=== PATIENT | male | born 1950 | race Caucasian/White ===

== ENCOUNTER 2016-11-24 15:56 | Emergency (ER) | payer MEDICARE, MEDICAID ==
[~2016-11-24] VITALS: Ht 175.3 cm; Wt 92.2 kg
[~2016-11-24 15:56] MED LIST: AMLO10TA2 PO; AMOX1TAB64 PO; ASPI-496 PO; ASPI-650 PO; ATOR20TA9 PO; CARV3.122 PO; CARV6.252 PO; CIPR500T87 PO; CYCL-259 PO; DOCU-30 PO; DOXY100T PO; FURO-93 PO; GABA300C10 PO; GABA600T2 PO; HYDR-3138 PO; IPRA4AER INH; ISOS30TA8 PO; LISI5TAB7 PO; MORP100C15; NICO1PAT4 TD; NITR0.4T SL; OSEL75CA PO; OXYC-229; POTA20TA14 PO; PRED10TA PO; SIMV20TA PO; TAMS-11 PO; TRAM100C2 PO
[2016-11-24] MEDS ORDERED: ASPIRIN 81 MG TABLET CHEW PO ONE (16:30)
[2016-11-24] MEDS ORDERED: SODIUM CHLORIDE FLUSH 10ML SYR IVF ONE (16:30)
[2016-11-24] MEDS ORDERED: ASPIRIN 81 MG TABLET CHEW ONE (17:07)
[2016-11-24 17:17] LABS: BLOOD UREA NITROGEN 10 mg/dL (7-18)
[2016-11-24 17:25] LABS: ASPARTATE AMINO TRANSFERASE 43 U/L (15-37)
[2016-11-24 17:29] LABS: IS PT STATUS REG ER OR PRE ER? YES
[2016-11-24 19:34] LABS: IS PT STATUS REG ER OR PRE ER? YES
[2016-11-24 19:45] VITALS: BP 164/82
== END 2016-11-24 20:21 | disposition home or self-care (01) ==
LOC: ED 18:41
DX: R07.89 Other chest pain (principal); R79.89 Other specified abnormal findings of blood chemistry; I11.0 Hypertensive heart disease with heart failure; I50.9 Heart failure, unspecified; E78.5 Hyperlipidemia, unspecified; J44.9 Chronic obstructive pulmonary disease, unspecified; M19.90 Unspecified osteoarthritis, unspecified site; I25.10 Atherosclerotic heart disease of native coronary artery without angina pectoris
CPT/HCPCS: 36415; 71010; 80053; 83690; 83880; 84484; 85025; 93005; 99285

== ENCOUNTER 2016-12-30 15:56 | Emergency (ER) | payer MEDICARE, MEDICAID ==
[~2016-12-30] VITALS: Ht 172.7 cm; Wt 89.0 kg
[~2016-12-30 15:56] MED LIST changes: +DOCU-131 PO; -DOCU-30 PO; -HYDR-3138 PO; +HYDR-3237 PO; +NICO1PAT13 TD; -NICO1PAT4 TD; -OXYC-229; +OXYC-307
[2016-12-30] MEDS ORDERED: KETOROLAC 30 MG/1 ML ONE (17:26)
[2016-12-30] MEDS ORDERED: KETOROLAC 30 MG/1 ML IM ONE (17:30)
[2016-12-30 17:32] LABS: HEMATOCRIT 46.1 % (39.2-51.8); WHITE BLOOD COUNT 8.6 x10^3/uL (3.4-10)
[2016-12-30 17:45] LABS: ASPARTATE AMINO TRANSFERASE 54 U/L (15-37); BLOOD UREA NITROGEN 11 mg/dL (7-18)
[2016-12-30 19:30] VITALS: BP 155/74
== END 2016-12-30 19:32 | disposition home or self-care (01) ==
LOC: ED 18:12
DX: L73.9 Follicular disorder, unspecified (principal); G89.29 Other chronic pain; M54.9 Dorsalgia, unspecified; F17.200 Nicotine dependence, unspecified, uncomplicated; N40.0 Benign prostatic hyperplasia without lower urinary tract symptoms; I11.0 Hypertensive heart disease with heart failure; I50.9 Heart failure, unspecified; M19.90 Unspecified osteoarthritis, unspecified site; J44.9 Chronic obstructive pulmonary disease, unspecified
CPT/HCPCS: 36415; 74020; 80053; 81001; 83690; 85025; 96372; 99285; J1885

== ENCOUNTER 2017-02-02 10:16 | Emergency (ER) | payer MEDICARE, MEDICAID ==
[~2017-02-02] VITALS: Ht 175.3 cm; Wt 89.0 kg
[~2017-02-02 10:16] MED LIST changes: +NICO-486 TD; -NICO1PAT13 TD
[2017-02-02 10:29] VITALS: BP 163/82
[2017-02-02] MEDS ORDERED: KETOROLAC 60 MG/2 ML IM ONE (12:00)
[2017-02-02] MEDS ORDERED: KETOROLAC 30 MG/1 ML ONE (12:36)
== END 2017-02-02 12:43 | disposition home or self-care (01) ==
LOC: ED 12:01
DX: S00.93XA Contusion of unspecified part of head, initial encounter (principal); S20.211A Contusion of right front wall of thorax, initial encounter; J44.9 Chronic obstructive pulmonary disease, unspecified; M19.90 Unspecified osteoarthritis, unspecified site; E78.5 Hyperlipidemia, unspecified; I11.0 Hypertensive heart disease with heart failure; I50.9 Heart failure, unspecified; F17.200 Nicotine dependence, unspecified, uncomplicated; W19.XXXA Unspecified fall, initial encounter; Y93.89 Activity, other specified; Y92.009 Unspecified place in unspecified non-institutional (private) residence as the place of occurrence of the external cause; Y99.9 Unspecified external cause status
CPT/HCPCS: 70450; 71010; 96372; 99284; J1885

== ENCOUNTER 2017-02-10 08:03 | Emergency (ER) | payer MEDICARE, MEDICAID ==
[~2017-02-10] VITALS: Ht 175.3 cm; Wt 81.0 kg
[2017-02-10] MEDS ORDERED: IBUPROFEN 200 MG TABLET ONE (08:57)
[2017-02-10] MEDS ORDERED: IBUPROFEN 200 MG TABLET PO ONE (09:00)
[2017-02-10 10:08] VITALS: BP 149/83
== END 2017-02-10 10:35 | disposition home or self-care (01) ==
LOC: ED 08:48
DX: S20.211A Contusion of right front wall of thorax, initial encounter (principal); N30.00 Acute cystitis without hematuria; E11.9 Type 2 diabetes mellitus without complications; I11.0 Hypertensive heart disease with heart failure; I50.9 Heart failure, unspecified; E78.5 Hyperlipidemia, unspecified; J44.9 Chronic obstructive pulmonary disease, unspecified; I25.10 Atherosclerotic heart disease of native coronary artery without angina pectoris; F17.200 Nicotine dependence, unspecified, uncomplicated; W19.XXXA Unspecified fall, initial encounter; Y93.89 Activity, other specified; Y92.410 Unspecified street and highway as the place of occurrence of the external cause; Y99.9 Unspecified external cause status
CPT/HCPCS: 71020; 81001; 87086; 93005; 99285

== ENCOUNTER 2017-02-16 16:56 | Inpatient (IN) | payer MEDICARE, MEDICAID ==
[~2017-02-16] VITALS: Ht 172.7 cm; Wt 87.5 kg
[2017-02-16 17:30] LABS: HEMATOCRIT 44.8 % (39.2-51.8); HEMOGLOBIN 15.1 g/dL (13.7-18.0); WHITE BLOOD COUNT 9.5 x10^3/uL (3.4-10)
[2017-02-16 17:36] LABS: ASPARTATE AMINO TRANSFERASE 48 U/L (15-37); BLOOD UREA NITROGEN 7 mg/dL (7-18)
[2017-02-16 17:42] LABS: IS PT STATUS REG ER OR PRE ER? YES
[2017-02-16] MEDS ORDERED: KETOROLAC 30 MG/1 ML IVPush ONE (18:00)
[2017-02-16] MEDS: MORPHINE SULFATE 4 MG/ML, 1ML IVPush PRN ×2 (18:00→20:08)
[2017-02-16] MEDS ORDERED: MORPHINE SULFATE 4 MG/ML, 1ML ONE ×2 (18:02→20:07)
[2017-02-16] MEDS ORDERED: KETOROLAC 30 MG/1 ML ONE (18:02)
[2017-02-16] MEDS ORDERED: SODIUM CHLORIDE FLUSH 10ML SYR IVF ONE (18:30)
[2017-02-16 19:29] LABS: IS PT STATUS REG ER OR PRE ER? YES
[2017-02-16] MEDS ORDERED: ASPIRIN 81 MG TABLET CHEW ONE (20:13)
[2017-02-16] MEDS ORDERED: hydrALAzine 20 MG/ML, 1ML IVPush PRN (20:30)
[2017-02-16] MEDS ORDERED: morphine SULFATE 10 MG/ML, 1ML IVPush PRN (20:30)
[2017-02-16] MEDS ORDERED: NITROGLYCERIN 0.4 MG BOTTLE (25 TABS) SL PRN (20:30)
[2017-02-16] MEDS ORDERED: ASPIRIN 81 MG TABLET CHEW PO ONE (20:30)
[2017-02-16] MEDS ORDERED: ONDANSETRON 2MG/ML, 2ML IVPush PRN (20:30)
[2017-02-16] MEDS ORDERED: ACETAMINOPHEN 325 MG TABLET PO PRN (20:30)
[2017-02-16] MEDS: SODIUM CHLORIDE FLUSH 10ML SYR IVF SCH (20:34)
[2017-02-16 21:49] VITALS: BP 143/89
[2017-02-16] MEDS ORDERED: OXYC-509 PO (22:02)
[2017-02-16] MEDS: GABAPENTIN 300 MG CAPSULE PO SCH (22:30)
[2017-02-16 23:26] LABS: IS PT STATUS REG ER OR PRE ER? NO
[2017-02-17 01:43] VITALS: BP 125/67
[2017-02-17] MEDS ORDERED: ENOXAPARIN 40 MG/0.4 ML SQ SCH (04:30)
[2017-02-17] MEDS ORDERED: TAMSULOSIN 0.4 MG CAP.ER.24H PO SCH (05:30)
[2017-02-17 05:37] LABS: IS PT STATUS REG ER OR PRE ER? NO
[2017-02-17] MEDS: GABAPENTIN 300 MG CAPSULE PO SCH (07:53)
[2017-02-17] MEDS: SODIUM CHLORIDE FLUSH 10ML SYR IVF SCH (07:53)
[2017-02-17 07:55] VITALS: BP 161/84
[2017-02-17] MEDS ORDERED: ASPIRIN 81 MG TABLET EC PO SCH (09:00)
[2017-02-17] MEDS ORDERED: LISINOPRIL 5 MG TABLET PO SCH (09:00)
[2017-02-17] MEDS ORDERED: REGADENOSON 0.4 MG/5 ML SYRINGE ONE (11:48)
[2017-02-17 14:34] VITALS: BP 168/74
[2017-02-17] MEDS ORDERED: NITR0.4T SL (16:50)
[2017-02-17] MEDS ORDERED: IBUP-1221 PO (16:50)
[2017-02-17] MEDS ORDERED: ACET500T71 PO (16:51)
[2017-02-17] MEDS ORDERED: KETOROLAC 30 MG/1 ML IVPush ONE (17:00)
== END 2017-02-17 18:47 | disposition home or self-care (01) | DRG 556 ==
LOC: ED 19:13 → SUATTDRO 20:27 → EDIP 20:43 → 5SO 21:05
PROVIDERS: ADMIT Hospitalist; ATTEND Hospitalist
DX: M79.1 Myalgia (principal); E11.42 Type 2 diabetes mellitus with diabetic polyneuropathy; I25.10 Atherosclerotic heart disease of native coronary artery without angina pectoris; E78.5 Hyperlipidemia, unspecified; F17.210 Nicotine dependence, cigarettes, uncomplicated; F32.9 Major depressive disorder, single episode, unspecified; G89.29 Other chronic pain; I10 Essential (primary) hypertension; I25.2 Old myocardial infarction; I34.0 Nonrheumatic mitral (valve) insufficiency; I44.7 Left bundle-branch block, unspecified; M19.90 Unspecified osteoarthritis, unspecified site; Z82.49 Family history of ischemic heart disease and other diseases of the circulatory system; Z83.3 Family history of diabetes mellitus; Z91.81 History of falling; W19.XXXA Unspecified fall, initial encounter
CPT/HCPCS: 36415; 71010; 78452; 80053; 81003; 84484; 85025; 93005; 93017; 96374; 96375; 96376; J1650; J1885; J2785; A9502; C9898; J2270

== ENCOUNTER 2017-03-27 16:24 | Inpatient (IN) | payer MEDICARE, MEDICAID ==
[~2017-03-27] VITALS: Ht 175.3 cm; Wt 85.9 kg
[~2017-03-27 16:24] MED LIST changes: +ACET500T71 PO; +IBUP-1221 PO; +OXYC-509 PO
[2017-03-27] MEDS ORDERED: SODIUM CHLORIDE FLUSH 10ML SYR IVF ONE (17:00)
[2017-03-27] MEDS ORDERED: KETOROLAC 30 MG/1 ML IVPush ONE (17:00)
[2017-03-27] MEDS ORDERED: ASPIRIN 81 MG TABLET CHEW PO ONE (17:00)
[2017-03-27] MEDS ORDERED: KETOROLAC 30 MG/1 ML ONE (17:09)
[2017-03-27] MEDS ORDERED: ASPIRIN 81 MG TABLET CHEW ONE (17:09)
[2017-03-27 17:23] LABS: HEMATOCRIT 44.3 % (39.2-51.8); HEMOGLOBIN 14.8 g/dL (13.7-18.0); WHITE BLOOD COUNT 8.9 x10^3/uL (3.4-10)
[2017-03-27 17:36] LABS: ASPARTATE AMINO TRANSFERASE 35 U/L (15-37); BLOOD UREA NITROGEN 12 mg/dL (7-18)
[2017-03-27 17:42] LABS: IS PT STATUS REG ER OR PRE ER? YES
[2017-03-27] MEDS ORDERED: ACETAMINOPHEN 325 MG TABLET PO ONE (19:00)
[2017-03-27] MEDS ORDERED: NITROGLYCERIN 0.4 MG BOTTLE (25 TABS) SL PRN ×2 (19:00→19:30)
[2017-03-27] MEDS ORDERED: ACETAMINOPHEN 325 MG TABLET PO PRN (19:30)
[2017-03-27] MEDS ORDERED: NITROGLYCERIN 0.4 MG/SPRAY SL PRN (19:30)
[2017-03-27 20:39] VITALS: BP 180/103
[2017-03-27] MEDS: morphine SULFATE 10 MG/ML, 1ML IV PRN (21:15)
[2017-03-27] MEDS ORDERED: ENALAPRILAT 1.25 MG/ML, 2ML IV PRN (22:00)
[2017-03-27] MEDS: GABAPENTIN 300 MG CAPSULE PO SCH (22:11)
[2017-03-27] MEDS: SODIUM CHLORIDE FLUSH 10ML SYR IVF SCH (22:12)
[2017-03-27 22:56] LABS: RAPID INFLUENZA A Negative (Negative); RAPID INFLUENZA B Negative (Negative)
[2017-03-27 22:57] VITALS: BP 170/75
[2017-03-27] MEDS ORDERED: PNEUMOCOCCAL 23 VACCINE IM-VACC ONE (23:00)
[2017-03-27] MEDS ORDERED: FLU VACC QS2017-18 (36MOS+) UP/PF 0.5 ML IM-VACC ONE (23:00)
[2017-03-27 23:44] LABS: IS PT STATUS REG ER OR PRE ER? NO
[2017-03-28] MEDS ORDERED: hydrALAzine 20 MG/ML, 1ML IV ONE
[2017-03-28] MEDS: OXYcodone IR 5MG TABLET PO PRN ×4 (00:05→18:35)
[2017-03-28 01:17] VITALS: BP 134/74
[2017-03-28 02:44] LABS: IS PT STATUS REG ER OR PRE ER? NO
[2017-03-28] MEDS: morphine SULFATE 10 MG/ML, 1ML IV PRN ×3 (03:18→16:31)
[2017-03-28] MEDS: CARVEDILOL 6.25 MG TABLET PO SCH ×2 (06:26→17:56)
[2017-03-28 07:14] VITALS: BP 156/87
[2017-03-28] MEDS ORDERED: LISINOPRIL 5 MG TABLET PO SCH (09:00)
[2017-03-28] MEDS ORDERED: ASPIRIN 81 MG TABLET EC PO SCH (09:00)
[2017-03-28] MEDS: SODIUM CHLORIDE FLUSH 10ML SYR IVF SCH (09:04)
[2017-03-28] MEDS: GABAPENTIN 300 MG CAPSULE PO SCH (09:05)
[2017-03-28] MEDS ORDERED: NICOTINE 7 MG/24 HR PATCH.TD24 TD SCH (12:00)
[2017-03-28 13:05] VITALS: BP 151/83
[2017-03-28 17:56] VITALS: BP 161/93
[2017-03-28 18:34] VITALS: BP 155/86
== END 2017-03-28 18:53 | disposition home or self-care (01) | DRG 292 ==
LOC: ED 17:19 → EDIP 19:01 → 5SO 20:24
PROVIDERS: ADMIT Family Medicine; ATTEND Family Medicine
DX: I11.0 Hypertensive heart disease with heart failure (principal); F11.20 Opioid dependence, uncomplicated; R07.89 Other chest pain; I25.10 Atherosclerotic heart disease of native coronary artery without angina pectoris; I50.9 Heart failure, unspecified; E78.5 Hyperlipidemia, unspecified; F17.200 Nicotine dependence, unspecified, uncomplicated; N40.0 Benign prostatic hyperplasia without lower urinary tract symptoms; M19.90 Unspecified osteoarthritis, unspecified site; M79.1 Myalgia; R74.8 Abnormal levels of other serum enzymes; Z23 Encounter for immunization; I25.2 Old myocardial infarction; Z82.49 Family history of ischemic heart disease and other diseases of the circulatory system; Z83.3 Family history of diabetes mellitus; Z98.1 Arthrodesis status
CPT/HCPCS: 36415; 71010; 80053; 80061; 81003; 82550; 83735; 84484; 85025; 85610; 85730; 87400; 90686; 90732; 93005; 93306; 96374; J1885; J0360; J2270

== ENCOUNTER 2017-06-06 15:29 | Inpatient (IN) | payer MEDICARE, MEDICAID ==
[~2017-06-06] VITALS: Ht 175.3 cm; Wt 86.5 kg
[2017-06-06] MEDS ORDERED: ASPIRIN 81 MG TABLET CHEW PO ONE (16:00)
[2017-06-06 16:02] LABS: BASOPHILS # (AUTO) 0.06 x10^3/uL (0-0.1); BASOPHILS % (AUTO) 1 % (0-1); EOSINOPHILS # (AUTO) 0.24 x10^3/uL (0-0.4); EOSINOPHILS % (AUTO) 3 % (1-7); LYMPHOCYTES # (AUTO) 3.22 x10^3/uL (1-3.4); LYMPHOCYTES % (AUTO) 40 % (22-44); MD NO; MEAN CORPUSCULAR HEMOGLOBIN 29.8 pg (27.5-34.5); MEAN CORPUSCULAR HGB CONC 32.9 g/dL (33.2-36.2); MEAN CORPUSCULAR VOLUME 90.5 fL (81-97); MEAN PLATELET VOLUME 7.4 fL (7.4-10.4); MONOCYTES # (AUTO) 0.71 x10^3/uL (0.2-0.8); MONOCYTES % (AUTO) 9 % (2-9); NEUTROPHILS # (AUTO) 3.84 x10^3/uL (1.8-6.8); NEUTROPHILS % (AUTO) 48 % (42-75); PLATELET COUNT 288 x10^3/uL (130-400); RED CELL DISTRIBUTION WIDTH 14.7 % (9.4-14.8)
[2017-06-06] MEDS ORDERED: ASPIRIN 81 MG TABLET CHEW ONE (16:02)
[2017-06-06 16:10] LABS: ALANINE AMINOTRANSFERASE 48 U/L (12-78); ALBUMIN 3.4 g/dL (3.4-5.0); ANION GAP 6 mmol/L (5-15); CHLORIDE 109 mmol/L (98-107); CREATININE 0.85 mg/dL (0.7-1.3)
[2017-06-06 16:15] LABS: ALKALINE PHOSPHATASE 144 U/L (45-117); BILIRUBIN,TOTAL 0.3 mg/dL (0.2-1.0); TOTAL PROTEIN 7.6 g/dL (6.4-8.2)
[2017-06-06] MEDS ORDERED: CARV12.543 PO (16:16)
[2017-06-06 16:20] LABS: TROPONIN I 0.141 ng/mL (0.000-0.045)
[2017-06-06] MEDS ORDERED: LISI-167 PO (16:20)
[2017-06-06] MEDS ORDERED: SODIUM CHLORIDE 0.9% 1,000 ML IV ONE (16:49)
[2017-06-06] MEDS ORDERED: NITROGLYCERIN SINGLE TAB 0.4 MG SL ONE (16:55)
[2017-06-06] MEDS ORDERED: HEPARIN 5,000 UNITS/ML, 1ML IVPush ONE (17:00)
[2017-06-06] MEDS: NITROGLYCERIN SINGLE TAB 0.4 MG SL PRN ×4 (17:00→17:15)
[2017-06-06] MEDS ORDERED: SODIUM CHLORIDE FLUSH 10ML SYR IVF ONE (17:00)
[2017-06-06 17:08] LABS: INTERNATIONAL NORMALIZED RATIO 0.96 (0.93-1.1)
[2017-06-06] MEDS ORDERED: NITROGLYCERIN OINT 2%, 1GM TP ONE ×2 (17:22→17:30)
[2017-06-06] MEDS ORDERED: HEPARIN 5,000 UNITS/ML, 1ML IV ONE (17:30)
[2017-06-06] MEDS ORDERED: HEPARIN 25,000 UNITS/500ML PMX 500 ML IV PRN (17:30)
[2017-06-06] MEDS ORDERED: HEPARIN 5,000 UNITS/ML, 1ML IV PRN (17:30)
[2017-06-06] MEDS ORDERED: HEPARIN 25,000 UNITS/500ML PMX 500 ML ONE (17:32)
[2017-06-06] MEDS ORDERED: HEPARIN 5,000 UNITS/ML, 1ML ONE (17:32)
[2017-06-06 18:25] VITALS: BP 174/93
[2017-06-06] MEDS: CARVEDILOL 12.5 MG TABLET PO SCH (20:06)
[2017-06-06] MEDS: LIDODERM 5% PATCH TD SCH (20:06)
[2017-06-06] MEDS: GABAPENTIN 300 MG CAPSULE PO SCH (20:07)
[2017-06-06] MEDS: OXYcodone/APAP 10/325MG TABLET PO PRN (20:34)
[2017-06-06 22:11] LABS: TROPONIN I 0.139 ng/mL (0.000-0.045)
[2017-06-06] MEDS ORDERED: OMNIPAQUE 350 MG/ML, 100ML BOTTLE ONE (23:20)
[2017-06-07 02:56] VITALS: BP 134/68
[2017-06-07 05:06] LABS: TROPONIN I 0.133 ng/mL (0.000-0.045)
[2017-06-07] MEDS: OXYcodone/APAP 10/325MG TABLET PO PRN ×3 (06:44→22:08)
[2017-06-07 08:07] VITALS: BP 156/87
[2017-06-07 08:08] VITALS: BP_SYST 159; BP_SYST 165; BP_DIAS 90; BP_DIAS 94
[2017-06-07] MEDS: GABAPENTIN 300 MG CAPSULE PO SCH ×2 (08:49→20:46)
[2017-06-07] MEDS: CARVEDILOL 12.5 MG TABLET PO SCH ×2 (08:49→20:46)
[2017-06-07] MEDS: ASPIRIN 81 MG TABLET EC PO SCH (08:49)
[2017-06-07] MEDS: ISOSORBIDE MONONITRATE ER 30 MG TABLET PO SCH (08:49)
[2017-06-07] MEDS: LISINOPRIL 20 MG TABLET PO SCH (08:49)
[2017-06-07 12:55] VITALS: BP 123/71
[2017-06-07] MEDS: ACETAMINOPHEN 325 MG TABLET PO PRN (19:45)
[2017-06-07 20:29] VITALS: BP 141/71
[2017-06-07 20:30] VITALS: BP_SYST 151; BP_SYST 156; BP_DIAS 75
[2017-06-07] MEDS: LIDODERM 5% PATCH TD SCH (20:45)
[2017-06-08 02:00] VITALS: BP_SYST 135; BP_SYST 153; BP_SYST 158; BP_DIAS 68; BP_DIAS 83
[2017-06-08 08:03] VITALS: BP_SYST 164; BP_SYST 168; BP_SYST 174; BP_DIAS 85; BP_DIAS 87; BP_DIAS 88
[2017-06-08] MEDS: ASPIRIN 81 MG TABLET EC PO SCH (08:33)
[2017-06-08] MEDS: CARVEDILOL 12.5 MG TABLET PO SCH (08:33)
[2017-06-08] MEDS: GABAPENTIN 300 MG CAPSULE PO SCH (08:34)
[2017-06-08] MEDS: ISOSORBIDE MONONITRATE ER 30 MG TABLET PO SCH (08:34)
[2017-06-08] MEDS: LISINOPRIL 20 MG TABLET PO SCH (08:34)
[2017-06-08] MEDS: OXYcodone/APAP 10/325MG TABLET PO PRN (08:39)
[2017-06-08] MEDS ORDERED: LORazepam 0.5MG TABLET PO ONE (09:30)
[2017-06-08 13:48] VITALS: BP_SYST 138; BP_SYST 146; BP_SYST 155; BP_DIAS 71; BP_DIAS 77; BP_DIAS 80
[2017-06-08] MEDS: ACETAMINOPHEN 325 MG TABLET PO PRN (13:58)
[2017-06-08] MEDS ORDERED: ISOS30TA8 PO (14:53)
[2017-06-08] MEDS ORDERED: MECL12.52 PO (14:54)
== END 2017-06-08 16:58 | disposition home or self-care (01) | DRG 292 ==
LOC: ED 17:14 → EDIP 17:33 → 5SO 18:19 → 3NE 06-07 22:20 → DCLOUNGE 06-08 16:13
PROVIDERS: ADMIT Internal Medicine; ATTEND Internal Medicine
DX: I11.0 Hypertensive heart disease with heart failure (principal); F11.20 Opioid dependence, uncomplicated; I42.9 Cardiomyopathy, unspecified; J44.9 Chronic obstructive pulmonary disease, unspecified; I50.9 Heart failure, unspecified; G62.9 Polyneuropathy, unspecified; I25.10 Atherosclerotic heart disease of native coronary artery without angina pectoris; E11.9 Type 2 diabetes mellitus without complications; E78.5 Hyperlipidemia, unspecified; I44.7 Left bundle-branch block, unspecified; M19.90 Unspecified osteoarthritis, unspecified site; G89.29 Other chronic pain; I34.0 Nonrheumatic mitral (valve) insufficiency; M54.9 Dorsalgia, unspecified; Z72.0 Tobacco use; Z79.82 Long term (current) use of aspirin; Z80.0 Family history of malignant neoplasm of digestive organs; Z82.49 Family history of ischemic heart disease and other diseases of the circulatory system; Z82.5 Family history of asthma and other chronic lower respiratory diseases; Z83.3 Family history of diabetes mellitus; Z90.49 Acquired absence of other specified parts of digestive tract; Z91.19 Patient's noncompliance with other medical treatment and regimen; Z91.81 History of falling; R42 Dizziness and giddiness
CPT/HCPCS: 36415; 70450; 70496; 70498; 70551; 71045; 80053; 83690; 84484; 85025; 85520; 85610; 85730; 93005; 93308; 93325; 99291; Q9967; J7030

== ENCOUNTER 2017-12-17 01:56 | Emergency (ER) | payer MEDICARE, MEDICAID ==
[~2017-12-17] VITALS: Ht 175.3 cm; Wt 86.5 kg
[~2017-12-17 01:56] MED LIST changes: +CARV12.543 PO; +LISI-167 PO; +MECL12.52 PO; +TRAM50TA2 PO
[2017-12-17 02:01] VITALS: BP 167/90
[2017-12-17] MEDS ORDERED: IBUPROFEN 200 MG TABLET ONE (02:20)
[2017-12-17] MEDS ORDERED: IBUPROFEN 200 MG TABLET PO ONE (02:30)
== END 2017-12-17 02:32 | disposition home or self-care (01) ==
LOC: ED 02:26
DX: S39.012A Strain of muscle, fascia and tendon of lower back, initial encounter (principal); I25.2 Old myocardial infarction; J44.9 Chronic obstructive pulmonary disease, unspecified; E78.5 Hyperlipidemia, unspecified; G89.29 Other chronic pain; I50.9 Heart failure, unspecified; I11.0 Hypertensive heart disease with heart failure; I25.10 Atherosclerotic heart disease of native coronary artery without angina pectoris; E11.40 Type 2 diabetes mellitus with diabetic neuropathy, unspecified; F17.200 Nicotine dependence, unspecified, uncomplicated; W11.XXXA Fall on and from ladder, initial encounter; Y93.89 Activity, other specified; Y92.009 Unspecified place in unspecified non-institutional (private) residence as the place of occurrence of the external cause; Y99.8 Other external cause status
CPT/HCPCS: 99283

== ENCOUNTER 2018-02-14 19:48 | Emergency (ER) | payer MEDICARE, MEDICAID ==
[~2018-02-14] VITALS: Ht 175.3 cm; Wt 88.0 kg
[~2018-02-14 19:48] MED LIST changes: -AMLO10TA2 PO; +AMLO10TA6 PO
[2018-02-14 19:56] VITALS: BP 173/93
== END 2018-02-14 20:53 | disposition home or self-care (01) ==
LOC: ED 20:42
DX: S02.92XA Unspecified fracture of facial bones, initial encounter for closed fracture (principal); I25.2 Old myocardial infarction; E11.9 Type 2 diabetes mellitus without complications; I10 Essential (primary) hypertension; J44.9 Chronic obstructive pulmonary disease, unspecified; M19.90 Unspecified osteoarthritis, unspecified site; X58.XXXA Exposure to other specified factors, initial encounter; Y93.89 Activity, other specified; Y99.8 Other external cause status; Y92.89 Other specified places as the place of occurrence of the external cause
CPT/HCPCS: 99283

== ENCOUNTER 2018-03-07 19:47 | Inpatient (IN) | payer MEDICARE, MEDICAID ==
[~2018-03-07] VITALS: Ht 175.3 cm; Wt 85.0 kg
[2018-03-07] MEDS ORDERED: SODIUM CHLORIDE FLUSH 10ML SYR IVF ONE (21:30)
[2018-03-07 21:34] LABS: BASOPHILS # (AUTO) 0.01 x10^3/uL (0-0.1); BASOPHILS % (AUTO) 0 % (0-1); EOSINOPHILS # (AUTO) 0.23 x10^3/uL (0-0.4); EOSINOPHILS % (AUTO) 3 % (1-7); LYMPHOCYTES # (AUTO) 3.04 x10^3/uL (1-3.4); LYMPHOCYTES % (AUTO) 33 % (22-44); MD NO; MEAN CORPUSCULAR HEMOGLOBIN 31.2 pg (27.5-34.5); MEAN CORPUSCULAR HGB CONC 33.3 g/dL (33.2-36.2); MEAN CORPUSCULAR VOLUME 93.7 fL (81-97); MEAN PLATELET VOLUME 7.3 fL (7.4-10.4); MONOCYTES # (AUTO) 0.83 x10^3/uL (0.2-0.8); MONOCYTES % (AUTO) 9 % (2-9); NEUTROPHILS # (AUTO) 5.05 x10^3/uL (1.8-6.8); NEUTROPHILS % (AUTO) 55 % (42-75); PLATELET COUNT 260 x10^3/uL (130-400); RED BLOOD COUNT 4.59 x10^6/uL (4.38-5.82); RED CELL DISTRIBUTION WIDTH 14.3 % (9.4-14.8)
[2018-03-07 21:45] LABS: ALANINE AMINOTRANSFERASE 38 U/L (12-78); ALBUMIN 3.3 g/dL (3.4-5.0); ANION GAP 7 mmol/L (5-15); CALCIUM 8.7 mg/dL (8.5-10.1); CHLORIDE 112 mmol/L (98-107); CREATININE 1.08 mg/dL (0.7-1.3)
[2018-03-07 21:50] LABS: ALKALINE PHOSPHATASE 129 U/L (45-117); BILIRUBIN,TOTAL 0.3 mg/dL (0.2-1.0); TOTAL PROTEIN 7.4 g/dL (6.4-8.2); TROPONIN I 0.061 ng/mL (0.000-0.045)
[2018-03-07] MEDS ORDERED: SODIUM CHLORIDE FLUSH 10ML SYR IVF PRN (23:00)
[2018-03-07] MEDS: HEPARIN 5,000 UNITS/ML, 1ML SQ SCH (23:30)
[2018-03-07] MEDS ORDERED: NITROGLYCERIN 0.4 MG BOTTLE (25 TABS) SL PRN (23:30)
[2018-03-07] MEDS ORDERED: MECLIZINE 12.5 MG TABLET PO PRN (23:30)
[2018-03-07] MEDS ORDERED: POLYETHYLENE GLYCOL 17 GM PACKET PO PRN (23:30)
[2018-03-07] MEDS ORDERED: NICOTINE 14MG/24 HR PATCH.TD24 TD SCH (23:30)
[2018-03-07] MEDS ORDERED: BISACODYL 10 MG SUPP PR PRN (23:30)
[2018-03-07] MEDS ORDERED: ACETAMINOPHEN 325 MG TABLET PO PRN (23:30)
[2018-03-07] MEDS ORDERED: ONDANSETRON ODT 4 MG PO PRN (23:30)
[2018-03-08] MEDS: morphine SULFATE 10 MG/ML, 1ML IVPush PRN ×2 (00:04→05:11)
[2018-03-08] MEDS: GABAPENTIN 300 MG CAPSULE PO SCH ×2 (00:04→08:07)
[2018-03-08] MEDS: CARVEDILOL 12.5 MG TABLET PO SCH ×2 (00:04→08:08)
[2018-03-08] MEDS: SODIUM CHLORIDE FLUSH 10ML SYR IVF SCH ×2 (00:05→08:07)
[2018-03-08 00:14] VITALS: BP 145/81
[2018-03-08 00:54] VITALS: BP 145/81
[2018-03-08 03:56] LABS: TROPONIN I 0.067 ng/mL (0.000-0.045)
[2018-03-08 07:08] LABS: TROPONIN I 0.066 ng/mL (0.000-0.045)
[2018-03-08 07:28] VITALS: BP 155/88
[2018-03-08] MEDS: HEPARIN 5,000 UNITS/ML, 1ML SQ SCH (07:30)
[2018-03-08] MEDS ORDERED: REGADENOSON 0.4 MG/5 ML SYRINGE ONE (08:08)
[2018-03-08] MEDS ORDERED: ASPIRIN 81 MG TABLET CHEW PO SCH (09:00)
[2018-03-08] MEDS ORDERED: SENNA/DOCUSATE TABLET PO SCH (09:00)
[2018-03-08] MEDS ORDERED: LISINOPRIL 20 MG TABLET PO SCH (09:00)
[2018-03-08 13:41] VITALS: BP 133/76
== END 2018-03-08 16:40 | disposition home or self-care (01) | DRG 184 ==
LOC: ED 21:22 → EDIP 23:15 → 5SO 23:34 → DCLOUNGE 03-08 15:55
PROVIDERS: ADMIT Internal Medicine; ATTEND Internal Medicine
DX: S22.42XA Multiple fractures of ribs, left side, initial encounter for closed fracture (principal); E44.1 Mild protein-calorie malnutrition; E78.5 Hyperlipidemia, unspecified; F17.210 Nicotine dependence, cigarettes, uncomplicated; G62.9 Polyneuropathy, unspecified; I34.0 Nonrheumatic mitral (valve) insufficiency; I25.10 Atherosclerotic heart disease of native coronary artery without angina pectoris; I44.7 Left bundle-branch block, unspecified; M19.90 Unspecified osteoarthritis, unspecified site; I11.9 Hypertensive heart disease without heart failure; W18.39XA Other fall on same level, initial encounter; Y93.89 Activity, other specified; Y92.89 Other specified places as the place of occurrence of the external cause; I25.2 Old myocardial infarction; Z95.810 Presence of automatic (implantable) cardiac defibrillator; Z79.899 Other long term (current) drug therapy; Z79.82 Long term (current) use of aspirin; Z90.49 Acquired absence of other specified parts of digestive tract; Z82.49 Family history of ischemic heart disease and other diseases of the circulatory system; Z68.27 Body mass index [BMI] 27.0-27.9, adult
CPT/HCPCS: 36415; 71045; 78452; 80053; 83690; 84484; 85025; 93005; 93017; 99285; G0378; J1644; J2785; A9502; C9898; J2270

== ENCOUNTER 2018-03-13 17:12 | Emergency (ER) | payer MEDICARE, MEDICAID ==
[~2018-03-13] VITALS: Ht 167.6 cm; Wt 82.9 kg
[2018-03-13 17:26] VITALS: BP 145/74
[2018-03-13 18:03] LABS: BASOPHILS # (AUTO) 0.05 x10^3/uL (0-0.1); BASOPHILS % (AUTO) 1 % (0-1); EOSINOPHILS % (AUTO) 3 % (1-7); LYMPHOCYTES # (AUTO) 3.62 x10^3/uL (1-3.4); LYMPHOCYTES % (AUTO) 38 % (22-44); MD NO; MEAN CORPUSCULAR HEMOGLOBIN 31.3 pg (27.5-34.5); MEAN CORPUSCULAR HGB CONC 33.5 g/dL (33.2-36.2); MEAN CORPUSCULAR VOLUME 93.6 fL (81-97); MEAN PLATELET VOLUME 7.8 fL (7.4-10.4); MONOCYTES # (AUTO) 0.75 x10^3/uL (0.2-0.8); MONOCYTES % (AUTO) 8 % (2-9); NEUTROPHILS # (AUTO) 4.79 x10^3/uL (1.8-6.8); NEUTROPHILS % (AUTO) 50 % (42-75); PLATELET COUNT 274 x10^3/uL (130-400); RED CELL DISTRIBUTION WIDTH 14.2 % (9.4-14.8)
[2018-03-13 18:12] LABS: ALANINE AMINOTRANSFERASE 39 U/L (12-78); ALBUMIN 3.5 g/dL (3.4-5.0); ANION GAP 10 mmol/L (5-15); CALCIUM 8.6 mg/dL (8.5-10.1); CHLORIDE 107 mmol/L (98-107); CREATININE 1.55 mg/dL (0.7-1.3)
[2018-03-13 18:15] LABS: ALKALINE PHOSPHATASE 135 U/L (45-117); BILIRUBIN,TOTAL 0.3 mg/dL (0.2-1.0); TOTAL PROTEIN 7.5 g/dL (6.4-8.2)
== END 2018-03-13 18:51 | disposition home or self-care (01) ==
LOC: ED 18:07
DX: G89.29 Other chronic pain (principal); M79.662 Pain in left lower leg; M79.661 Pain in right lower leg; I50.9 Heart failure, unspecified; I25.2 Old myocardial infarction; I11.0 Hypertensive heart disease with heart failure; J44.9 Chronic obstructive pulmonary disease, unspecified; E78.5 Hyperlipidemia, unspecified; I25.10 Atherosclerotic heart disease of native coronary artery without angina pectoris; F17.200 Nicotine dependence, unspecified, uncomplicated
CPT/HCPCS: 36415; 80053; 85025; 99284

== ENCOUNTER 2018-06-08 16:18 | Emergency (ER) | payer MEDICARE, MEDICAID ==
[~2018-06-08] VITALS: Ht 175.3 cm; Wt 83.0 kg
[~2018-06-08 16:18] MED LIST changes: -AMLO10TA6 PO; +AMLO10TA8 PO; +ATOR20TA37 PO; -ATOR20TA9 PO; -GABA600T2 PO; +GABA600T7 PO
--- NOTE | 2018-06-08 16:43 | NUR ---
Pt in gown, lab at bedside, pt agrees to give ua when lab is done. Pt states, "so do I have to wait for the doctor to get any pain meds?" Pt educated on ED process. Pt in no obv acute distress.
--- NOTE | 2018-06-08 16:55 | NUR ---
in for nola, pt states he recently ran out of his gabapentin, c/o leg spasm.
[2018-06-08] MEDS ORDERED: GABAPENTIN 300 MG CAPSULE PO ONE (17:00)
[2018-06-08 17:01] LABS: BASOPHILS # (AUTO) 0.05 x10^3/uL (0-0.1); BASOPHILS % (AUTO) 1 % (0-1); EOSINOPHILS # (AUTO) 0.19 x10^3/uL (0-0.4); EOSINOPHILS % (AUTO) 2 % (1-7); LYMPHOCYTES # (AUTO) 2.88 x10^3/uL (1-3.4); LYMPHOCYTES % (AUTO) 36 % (22-44); MD NO; MEAN CORPUSCULAR HEMOGLOBIN 29.9 pg (27.5-34.5); MEAN CORPUSCULAR HGB CONC 32.7 g/dL (33.2-36.2); MEAN CORPUSCULAR VOLUME 91.2 fL (81-97); MEAN PLATELET VOLUME 7.6 fL (7.4-10.4); MONOCYTES # (AUTO) 0.54 x10^3/uL (0.2-0.8); MONOCYTES % (AUTO) 7 % (2-9); NEUTROPHILS # (AUTO) 4.34 x10^3/uL (1.8-6.8); NEUTROPHILS % (AUTO) 54 % (42-75); PLATELET COUNT 331 x10^3/uL (130-400); RED BLOOD COUNT 5.08 x10^6/uL (4.38-5.82); RED CELL DISTRIBUTION WIDTH 15.1 % (9.4-14.8)
[2018-06-08] MEDS ORDERED: GABAPENTIN 300 MG CAPSULE ONE (17:04)
[2018-06-08 17:10] LABS: ALANINE AMINOTRANSFERASE 34 U/L (12-78); ALBUMIN 3.9 g/dL (3.4-5.0); ANION GAP 7 mmol/L (5-15); CALCIUM 9.4 mg/dL (8.5-10.1); CHLORIDE 108 mmol/L (98-107); CREATININE 0.91 mg/dL (0.7-1.3)
[2018-06-08 17:12] LABS: ALKALINE PHOSPHATASE 118 U/L (45-117); BILIRUBIN,TOTAL 0.5 mg/dL (0.2-1.0)
[2018-06-08 17:16] VITALS: BP 146/74
[2018-06-08 17:23] LABS: MICROSCOPIC NOT IND
--- NOTE | 2018-06-08 17:34 | NUR ---
Pt to be DC'd per MD. Pt requesting phone, pt aware phone is available at DC desk.
[2018-06-08 17:44] LABS: CULTURE INDICATED? NO
--- NOTE | 2018-06-08 18:05 | NUR ---
Pt upset about getting discharged without narcotics, pt educated he was given a refill for his current prescription for his leg pain and treatment of leg cramps with narcotics is not warranted per MD at this time.
== END 2018-06-08 18:06 | disposition home or self-care (01) ==
LOC: ED 17:12
DX: G62.9 Polyneuropathy, unspecified (principal); I11.0 Hypertensive heart disease with heart failure; I50.9 Heart failure, unspecified; I25.2 Old myocardial infarction; E11.9 Type 2 diabetes mellitus without complications; J44.9 Chronic obstructive pulmonary disease, unspecified; E78.5 Hyperlipidemia, unspecified; M19.90 Unspecified osteoarthritis, unspecified site; I25.10 Atherosclerotic heart disease of native coronary artery without angina pectoris; Z95.0 Presence of cardiac pacemaker
CPT/HCPCS: 36415; 80053; 81003; 83735; 85025; 93005; 99284

== ENCOUNTER 2018-09-11 19:37 | Inpatient (IN) | payer MEDICARE, MEDICAID ==
[~2018-09-11] VITALS: Ht 175.3 cm; Wt 84.2 kg
--- NOTE | 2018-09-11 20:05 | NUR ---
pt to room from lobby
[2018-09-11 20:22] LABS: BASOPHILS # (AUTO) 0.05 x10^3/uL (0-0.1); BASOPHILS % (AUTO) 1 % (0-1); EOSINOPHILS # (AUTO) 0.24 x10^3/uL (0-0.4); EOSINOPHILS % (AUTO) 3 % (1-7); LYMPHOCYTES # (AUTO) 3.05 x10^3/uL (1-3.4); LYMPHOCYTES % (AUTO) 32 % (22-44); MD NO; MEAN CORPUSCULAR HEMOGLOBIN 29.5 pg (27.5-34.5); MEAN CORPUSCULAR HGB CONC 33.4 g/dL (33.2-36.2); MEAN CORPUSCULAR VOLUME 88.4 fL (81-97); MEAN PLATELET VOLUME 7.4 fL (7.4-10.4); MONOCYTES # (AUTO) 0.86 x10^3/uL (0.2-0.8); MONOCYTES % (AUTO) 9 % (2-9); NEUTROPHILS # (AUTO) 5.28 x10^3/uL (1.8-6.8); NEUTROPHILS % (AUTO) 56 % (42-75); PLATELET COUNT 290 x10^3/uL (130-400); RED BLOOD COUNT 4.99 x10^6/uL (4.38-5.82); RED CELL DISTRIBUTION WIDTH 15.3 % (9.4-14.8)
--- NOTE | 2018-09-11 20:29 | NUR ---
THROUGHPUT RN: DR. TORO CANCELLED PACEMAKER INTERROGATION, NO CALL MADE TO [employer] PER .
[2018-09-11] MEDS ORDERED: ASPIRIN 81 MG TABLET CHEW PO ONE (20:30)
[2018-09-11] MEDS ORDERED: SODIUM CHLORIDE FLUSH 10ML SYR IVF ONE (20:30)
--- NOTE | 2018-09-11 20:30 | NUR ---
PT. HAS HAD X-RAY AND LABS COMPLETED. DR. TORO WAS IN TO EVAL PT. AND DISCUSS POC. PT. C/O R/L CP 10/14 "SOMETIMES IT'S BETTER, SOMETIMES IT'S WORSE". DESCRIBED "IT FEELS LIKE SOMETHING IS POKING ME." X 5 DAYS. PT. STAES "IT FEELS LIKE SOMETHING IS IN MY PACEMAKER POKING ME." PT. DENIES SOB AT THIS TIME BUT C/O IT OFF/ON. PT. REPORTS BLE SWELLING "MUCH BETTER THAN IT USED TO BE." ALSO STATES "SOMETHING IS STUCK IN MY TOE SO I HAVE BEEN USING A KNIFE TO TRY TO GET IT OUT." PEA SIZED SCAB NOTED TO RIGHT GREAT TOE. CONTINUOUS PULSE OX, B/P, AND HEART MONITORS APPLIED. CALL LIGHT IN REACH. ALL SAFETY MEASURS OBSERVED.
[2018-09-11 20:32] LABS: ALANINE AMINOTRANSFERASE 33 U/L (12-78); ALBUMIN 3.7 g/dL (3.4-5.0); ANION GAP 8 mmol/L (5-15); CALCIUM 8.5 mg/dL (8.5-10.1); CHLORIDE 109 mmol/L (98-107); CREATININE 1.05 mg/dL (0.7-1.3)
[2018-09-11 20:36] LABS: ALKALINE PHOSPHATASE 129 U/L (45-117); BILIRUBIN,TOTAL 0.6 mg/dL (0.2-1.0); TOTAL PROTEIN 7.5 g/dL (6.4-8.2); TROPONIN I 0.079 ng/mL (0.000-0.045)
[2018-09-11 20:50] VITALS: BP 174/80
[2018-09-11] MEDS ORDERED: SODIUM CHLORIDE FLUSH 10ML SYR IVF PRN (21:00)
[2018-09-11] MEDS ORDERED: ACETAMINOPHEN 325 MG TABLET PO PRN (21:30)
[2018-09-11] MEDS ORDERED: MECLIZINE 12.5 MG TABLET PO PRN (21:30)
[2018-09-11] MEDS ORDERED: POLYETHYLENE GLYCOL 17 GM PACKET PO PRN (21:30)
[2018-09-11] MEDS ORDERED: hydrALAzine 20 MG/ML, 1ML IVPush PRN (21:30)
[2018-09-11] MEDS ORDERED: NITROGLYCERIN 0.4 MG BOTTLE (25 TABS) SL PRN (21:30)
[2018-09-11] MEDS ORDERED: ASPIRIN 81 MG TABLET CHEW ONE (21:44)
--- NOTE | 2018-09-11 21:51 | NUR ---
REPORT CALLED TO FLOOR RN. FLOOR READY FOR PT. TRANSPORT.
[2018-09-11] MEDS ORDERED: ATORVASTATIN 40 MG TABLET PO SCH (22:30)
[2018-09-11] MEDS: CARVEDILOL 12.5 MG TABLET PO SCH (22:54)
[2018-09-11] MEDS: HEPARIN 5,000 UNITS/ML, 1ML SQ SCH (22:54)
[2018-09-11] MEDS: GABAPENTIN 300 MG CAPSULE PO SCH (22:54)
[2018-09-11] MEDS: OXYcodone IR 5MG TABLET PO PRN (22:55)
[2018-09-11 23:29] LABS: TROPONIN I 0.085 ng/mL (0.000-0.045)
[2018-09-12 00:39] VITALS: BP 148/65
[2018-09-12 05:36] LABS: ALANINE AMINOTRANSFERASE 29 U/L (12-78); ALBUMIN 3.1 g/dL (3.4-5.0); ANION GAP 6 mmol/L (5-15); BASOPHILS # (AUTO) 0.05 x10^3/uL (0-0.1); BASOPHILS % (AUTO) 1 % (0-1); CALCIUM 8.6 mg/dL (8.5-10.1); CHLORIDE 110 mmol/L (98-107); CHOLESTEROL, TOTAL 137 mg/dL (140-239); CREATININE 0.93 mg/dL (0.7-1.3); EOSINOPHILS # (AUTO) 0.33 x10^3/uL (0-0.4); EOSINOPHILS % (AUTO) 5 % (1-7); LYMPHOCYTES # (AUTO) 2.79 x10^3/uL (1-3.4); LYMPHOCYTES % (AUTO) 38 % (22-44); MD NO; MEAN CORPUSCULAR HEMOGLOBIN 29.5 pg (27.5-34.5); MEAN CORPUSCULAR HGB CONC 33.3 g/dL (33.2-36.2); MEAN CORPUSCULAR VOLUME 88.5 fL (81-97); MEAN PLATELET VOLUME 7.9 fL (7.4-10.4); MONOCYTES # (AUTO) 0.64 x10^3/uL (0.2-0.8); MONOCYTES % (AUTO) 9 % (2-9); NEUTROPHILS # (AUTO) 3.46 x10^3/uL (1.8-6.8); NEUTROPHILS % (AUTO) 48 % (42-75); PLATELET COUNT 256 x10^3/uL (130-400); RED BLOOD COUNT 4.53 x10^6/uL (4.38-5.82); RED CELL DISTRIBUTION WIDTH 15.6 % (9.4-14.8); TRIGLYCERIDES 117 mg/dL (50-200); VLDL CHOLESTEROL 23 mg/dL (0-25)
[2018-09-12 05:40] LABS: ALKALINE PHOSPHATASE 115 U/L (45-117); BILIRUBIN,TOTAL 0.4 mg/dL (0.2-1.0); CHOL/HDL RATIO 4.9; HDL CHOL % 20 % (26-37); HDL CHOLESTEROL (DIRECT) 28 mg/dL (40-60); LDL CHOLESTEROL,CALCULATED 86 mg/dL (54-169); LDL/HDL RATIO 3.1 (0.5-3.0); TOTAL PROTEIN 6.4 g/dL (6.4-8.2); TROPONIN I 0.092 ng/mL (0.000-0.045)
[2018-09-12] MEDS: HEPARIN 5,000 UNITS/ML, 1ML SQ SCH ×2 (06:41→15:00)
[2018-09-12 06:47] VITALS: BP 134/70
[2018-09-12] MEDS ORDERED: POTASSIUM CHLORIDE 20 MEQ TAB.ER.PRT PO ONE (08:30)
[2018-09-12] MEDS: CARVEDILOL 12.5 MG TABLET PO SCH (08:38)
[2018-09-12] MEDS: GABAPENTIN 300 MG CAPSULE PO SCH (08:39)
[2018-09-12] MEDS: OXYcodone IR 5MG TABLET PO PRN (08:43)
[2018-09-12] MEDS ORDERED: TEMPLATE NON-FORMULARY MED. (Gabapentin** 600 MG) PO SCH (09:00)
[2018-09-12] MEDS ORDERED: ASPIRIN 81 MG TABLET EC PO SCH (09:00)
[2018-09-12] MEDS ORDERED: LISINOPRIL 20 MG TABLET PO SCH (09:00)
[2018-09-12] MEDS ORDERED: NICOTINE 7 MG/24 HR PATCH.TD24 TD SCH (09:00)
[2018-09-12] MEDS ORDERED: CARVEDILOL 12.5 MG TABLET PO SCH (09:00)
[2018-09-12 12:21] LABS: TROPONIN I 0.077 ng/mL (0.000-0.045)
[2018-09-12 12:40] VITALS: BP 132/71
[2018-09-12] MEDS ORDERED: ATORVASTATIN 40 MG TABLET PO SCH (21:00)
== END 2018-09-12 15:23 | disposition home or self-care (01) | DRG 313 ==
LOC: ED 20:55 → EDIP 20:56 → 5SO 21:58 → DCLOUNGE 09-12 15:15
PROVIDERS: ADMIT Family Medicine; ATTEND Family Medicine
DX: R07.89 Other chest pain (principal); E44.0 Moderate protein-calorie malnutrition; I42.9 Cardiomyopathy, unspecified; E78.5 Hyperlipidemia, unspecified; E87.6 Hypokalemia; F17.200 Nicotine dependence, unspecified, uncomplicated; G62.9 Polyneuropathy, unspecified; I11.0 Hypertensive heart disease with heart failure; Z68.27 Body mass index [BMI] 27.0-27.9, adult; E11.42 Type 2 diabetes mellitus with diabetic polyneuropathy; I25.2 Old myocardial infarction; I34.0 Nonrheumatic mitral (valve) insufficiency; I44.7 Left bundle-branch block, unspecified; I50.9 Heart failure, unspecified; J44.9 Chronic obstructive pulmonary disease, unspecified; M19.90 Unspecified osteoarthritis, unspecified site; Z91.19 Patient's noncompliance with other medical treatment and regimen; Z95.810 Presence of automatic (implantable) cardiac defibrillator; Z71.6 Tobacco abuse counseling; I25.10 Atherosclerotic heart disease of native coronary artery without angina pectoris
CPT/HCPCS: 36415; 71045; 74018; 80053; 80061; 83880; 84484; 85025; 93005; 93306; 99285; G0378; J1644

== ENCOUNTER 2018-09-22 16:02 | Emergency (ER) | payer MEDICARE, MEDICAID ==
[~2018-09-22] VITALS: Ht 175.3 cm; Wt 87.1 kg
--- NOTE | 2018-09-22 16:25 | NUR ---
Pt assessed. C/o GLF at 1400 today because "both my legs cramped up." Pt reports pain in bilateral LE anteriorly today. Denies hx DVT or recent injury. In the fall, pt landed on abdomen and left hand. Pt c/o diffuse abd pain, denies neck or back pain. Pt did not hit his head, no LOC. -anticoagulants. Pt has small lac to left 2nd digit, bleeding controlled. Last tetanus 15 years ago. Will cont to monitor, call light within reach.
--- NOTE | 2018-09-22 16:33 | NUR ---
ERP at BS performing bedside handheld US
[2018-09-22] MEDS ORDERED: OXYcodone/APAP 5/325MG TABLET ONE (16:47)
[2018-09-22] MEDS ORDERED: DIPH,PERTUSS(ACELL),TET VAC/PF 0.5 ML IM-VACC ONE (16:47)
[2018-09-22] MEDS ORDERED: DIPH,PERTUSS(ACELL),TET VAC/PF 0.5 ML IM-VACC PRN (17:00)
[2018-09-22] MEDS ORDERED: OXYcodone/APAP 5/325MG TABLET PO ONE (17:00)
[2018-09-22 17:04] LABS: BASOPHILS # (AUTO) 0.04 x10^3/uL (0-0.1); BASOPHILS % (AUTO) 1 % (0-1); EOSINOPHILS # (AUTO) 0.29 x10^3/uL (0-0.4); EOSINOPHILS % (AUTO) 3 % (1-7); LYMPHOCYTES # (AUTO) 2.52 x10^3/uL (1-3.4); LYMPHOCYTES % (AUTO) 28 % (22-44); MD NO; MEAN CORPUSCULAR HEMOGLOBIN 29.5 pg (27.5-34.5); MEAN CORPUSCULAR HGB CONC 32.4 g/dL (33.2-36.2); MEAN CORPUSCULAR VOLUME 90.8 fL (81-97); MEAN PLATELET VOLUME 7.7 fL (7.4-10.4); MONOCYTES # (AUTO) 0.75 x10^3/uL (0.2-0.8); MONOCYTES % (AUTO) 8 % (2-9); NEUTROPHILS # (AUTO) 5.42 x10^3/uL (1.8-6.8); NEUTROPHILS % (AUTO) 60 % (42-75); PLATELET COUNT 282 x10^3/uL (130-400); RED BLOOD COUNT 4.75 x10^6/uL (4.38-5.82); RED CELL DISTRIBUTION WIDTH 15.8 % (9.4-14.8)
[2018-09-22 17:13] LABS: ANION GAP 9 mmol/L (5-15); CALCIUM 8.7 mg/dL (8.5-10.1); CHLORIDE 109 mmol/L (98-107)
[2018-09-22 17:14] LABS: CREATININE 0.99 mg/dL (0.7-1.3)
[2018-09-22] MEDS ORDERED: LIDOCAINE-MPF 1%, 5ML ONE (17:29)
[2018-09-22] MEDS ORDERED: LIDOCAINE 1%, 10ML INFIL ONE (17:30)
[2018-09-22] MEDS ORDERED: BACITRACIN ZINC OINT 500U/GM, 0.9 GM ONE (17:30)
[2018-09-22 18:29] VITALS: BP 156/72
[2018-09-22] MEDS ORDERED: BACITRACIN OINT 500U/GM, 15 GM TP ONE (21:00)
== END 2018-09-22 19:09 | disposition home or self-care (01) ==
LOC: ED 16:58
DX: S61.211A Laceration without foreign body of left index finger without damage to nail, initial encounter (principal); S30.1XXA Contusion of abdominal wall, initial encounter; G62.9 Polyneuropathy, unspecified; I11.0 Hypertensive heart disease with heart failure; I50.9 Heart failure, unspecified; I25.2 Old myocardial infarction; E11.9 Type 2 diabetes mellitus without complications; J44.9 Chronic obstructive pulmonary disease, unspecified; E78.5 Hyperlipidemia, unspecified; Z95.0 Presence of cardiac pacemaker; W01.0XXA Fall on same level from slipping, tripping and stumbling without subsequent striking against object, initial encounter; Y93.89 Activity, other specified; Y92.89 Other specified places as the place of occurrence of the external cause; Y99.8 Other external cause status
CPT/HCPCS: 12001; 36415; 73130; 80048; 85025; 90471; 90715; 99284; J3490

== ENCOUNTER 2018-10-02 18:46 | Emergency (ER) | payer MEDICARE, MEDICAID ==
[~2018-10-02] VITALS: Ht 175.3 cm; Wt 82.0 kg
[~2018-10-02 18:46] MED LIST changes: -NITR0.4T SL; +NITR0.4T41 SL; -OSEL75CA PO; +OSEL75CA26 PO
[2018-10-02 18:51] VITALS: BP 165/91
[2018-10-02] MEDS ORDERED: MORPHINE SULFATE 4 MG/ML, 1ML ONE (18:54)
[2018-10-02] MEDS ORDERED: ASPIRIN 81 MG TABLET CHEW ONE (18:54)
[2018-10-02] MEDS ORDERED: MORPHINE SULFATE 4 MG/ML, 1ML IVPush PRN (19:00)
[2018-10-02] MEDS ORDERED: ASPIRIN 81 MG TABLET CHEW PO ONE (19:00)
[2018-10-02] MEDS ORDERED: SODIUM CHLORIDE FLUSH 10ML SYR IVF ONE (19:00)
[2018-10-02 19:05] LABS: BASOPHILS # (AUTO) 0.05 x10^3/uL (0-0.1); BASOPHILS % (AUTO) 1 % (0-1); EOSINOPHILS # (AUTO) 0.11 x10^3/uL (0-0.4); EOSINOPHILS % (AUTO) 1 % (1-7); LYMPHOCYTES # (AUTO) 2.69 x10^3/uL (1-3.4); LYMPHOCYTES % (AUTO) 29 % (22-44); MD NO; MEAN CORPUSCULAR HEMOGLOBIN 29.8 pg (27.5-34.5); MEAN CORPUSCULAR HGB CONC 32.8 g/dL (33.2-36.2); MEAN CORPUSCULAR VOLUME 90.8 fL (81-97); MEAN PLATELET VOLUME 7.4 fL (7.4-10.4); MONOCYTES % (AUTO) 6 % (2-9); NEUTROPHILS # (AUTO) 5.92 x10^3/uL (1.8-6.8); NEUTROPHILS % (AUTO) 63 % (42-75); PLATELET COUNT 313 x10^3/uL (130-400); RED BLOOD COUNT 5.07 x10^6/uL (4.38-5.82)
--- NOTE | 2018-10-02 19:07 | NUR ---
PT BIB EMS FOR CHEST PAIN AND ICD SHOCK. ONSET 4 HRS [employer]. STATES CHEST PAIN DEVELOPED BEFOR ICD SHOCK. PT ABLE TO AMBULATE TO [facility] WITH SHUFFLING GAIT. ALSO C/O SOB AND DIZZINESS. DENIES ANY RECENT HEAD INJ. PT STATES HE HAS LOW BACK AND BILAT LEG PAIN. CP MONITORS IN PLACE, CALL LIGHT IN REACH. SIDERAILS UP X 2. SBAR REPORT TO DAMEON LOAIZA
--- NOTE | 2018-10-02 19:08 | NUR ---
pt in hospital gown, on all monitors. pt medicated per emar. lab has drawn, CXR done. pt resting comfortably in [facility]. will continue to monitor.
--- NOTE | 2018-10-02 19:16 | NUR ---
PT UNAWARE OF WHAT TYPE OF PACER/AIDC HE HAS.
[2018-10-02 19:17] LABS: ALANINE AMINOTRANSFERASE 33 U/L (12-78); ALBUMIN 3.9 g/dL (3.4-5.0); ANION GAP 10 mmol/L (5-15); CALCIUM 8.6 mg/dL (8.5-10.1); CHLORIDE 107 mmol/L (98-107); CREATININE 0.98 mg/dL (0.7-1.3); INTERNATIONAL NORMALIZED RATIO 0.96 (0.93-1.1); PROTHROMBIN TIME 10.1 Seconds (9.6-11.5)
[2018-10-02 19:22] LABS: ALKALINE PHOSPHATASE 130 U/L (45-117); BILIRUBIN,TOTAL 0.4 mg/dL (0.2-1.0); TOTAL PROTEIN 7.9 g/dL (6.4-8.2); TROPONIN I 0.056 ng/mL (0.000-0.045)
--- NOTE | 2018-10-02 19:27 | NUR ---
PT UP FOR RECHECK. ALL RESULTS BACK.
--- NOTE | 2018-10-02 20:08 | NUR ---
pt has [place] pacer.
== END 2018-10-02 20:21 | disposition home or self-care (01) ==
LOC: ED 19:11
DX: R07.2 Precordial pain (principal); R79.89 Other specified abnormal findings of blood chemistry; Z72.9 Problem related to lifestyle, unspecified; F17.210 Nicotine dependence, cigarettes, uncomplicated; I11.0 Hypertensive heart disease with heart failure; I50.9 Heart failure, unspecified; E78.5 Hyperlipidemia, unspecified; E11.9 Type 2 diabetes mellitus without complications; I25.10 Atherosclerotic heart disease of native coronary artery without angina pectoris; J44.9 Chronic obstructive pulmonary disease, unspecified; M19.90 Unspecified osteoarthritis, unspecified site; Z95.0 Presence of cardiac pacemaker
CPT/HCPCS: 36415; 71045; 80053; 83880; 84484; 85025; 85610; 85730; 93005; 96374; 99284; 99406; J2270

== ENCOUNTER 2018-12-22 20:16 | Inpatient (IN) | payer MEDICARE, MEDICAID ==
[~2018-12-22] VITALS: Ht 175.3 cm; Wt 85.0 kg
[2018-12-23 12:54] VITALS: BP 131/75
== END 2018-12-23 18:07 | disposition home or self-care (01) | DRG 683 ==
LOC: ED 20:47 → EDIP 21:45 → 5SO 22:36
PROVIDERS: ADMIT Family Medicine; ATTEND Family Medicine
DX: N17.9 Acute kidney failure, unspecified (principal); I42.9 Cardiomyopathy, unspecified; F17.210 Nicotine dependence, cigarettes, uncomplicated; E11.40 Type 2 diabetes mellitus with diabetic neuropathy, unspecified; I11.0 Hypertensive heart disease with heart failure; I50.9 Heart failure, unspecified; I25.10 Atherosclerotic heart disease of native coronary artery without angina pectoris; I44.7 Left bundle-branch block, unspecified; J44.9 Chronic obstructive pulmonary disease, unspecified; N40.0 Benign prostatic hyperplasia without lower urinary tract symptoms; G89.29 Other chronic pain; M19.90 Unspecified osteoarthritis, unspecified site; H53.8 Other visual disturbances; M54.9 Dorsalgia, unspecified; E78.5 Hyperlipidemia, unspecified; R25.2 Cramp and spasm; Z95.5 Presence of coronary angioplasty implant and graft; Z82.49 Family history of ischemic heart disease and other diseases of the circulatory system; Z91.19 Patient's noncompliance with other medical treatment and regimen; Z95.810 Presence of automatic (implantable) cardiac defibrillator; Z71.6 Tobacco abuse counseling
CPT/HCPCS: 36415; 71045; 78452; 80048; 80053; 80061; 81001; 82607; 83690; 83880; 84443; 84484; 85025; 93005; 93017; 99285; G0378; J1644; J2785; A9502; C9898; J2270

== ENCOUNTER 2019-01-12 18:32 | Emergency (ER) | payer MEDICARE, MEDICAID ==
[~2019-01-12] VITALS: Ht 175.3 cm; Wt 85.0 kg
--- NOTE | 2019-01-12 18:52 | NUR ---
THIS IS A 68YO MALE THAT COMES IN TODAY STATING HE IS HAVING ALL OVER SPAMS MOSTLY NECK BACK AND LEGS, HE REPORTS A RECENT UTI AND SAYS HE IS STILL HAVING SYMPTOMS FROM THAT AFTER TAKING ABX. PT IS ON Access Closure CONNECTED TO ALL MONITORS AT THIS TIME. VSS. CALL LIGHT WITHIN REACH
--- NOTE | 2019-01-12 18:52 | NUR ---
MD AT BEDSIDE TO ASSESS PT
[2019-01-12] MEDS ORDERED: CYCLOBENZAPRINE 10 MG TABLET PO ONE (19:00)
[2019-01-12] MEDS ORDERED: KETOROLAC 30 MG/1 ML IM ONE (19:00)
[2019-01-12] MEDS ORDERED: CYCLOBENZAPRINE 10 MG TABLET ONE (19:03)
[2019-01-12] MEDS ORDERED: KETOROLAC 60 MG/2 ML ONE (19:03)
[2019-01-12 19:07] LABS: BASOPHILS # (AUTO) 0.04 x10^3/uL (0-0.1); BASOPHILS % (AUTO) 0 % (0-1); EOSINOPHILS # (AUTO) 0.32 x10^3/uL (0-0.4); EOSINOPHILS % (AUTO) 3 % (1-7); LYMPHOCYTES # (AUTO) 2.88 x10^3/uL (1-3.4); LYMPHOCYTES % (AUTO) 26 % (22-44); MD NO; MEAN CORPUSCULAR HEMOGLOBIN 30.7 pg (27.5-34.5); MEAN CORPUSCULAR VOLUME 93.2 fL (81-97); MEAN PLATELET VOLUME 7.2 fL (7.4-10.4); MONOCYTES # (AUTO) 1.02 x10^3/uL (0.2-0.8); MONOCYTES % (AUTO) 9 % (2-9); NEUTROPHILS # (AUTO) 6.91 x10^3/uL (1.8-6.8); NEUTROPHILS % (AUTO) 62 % (42-75); PLATELET COUNT 246 x10^3/uL (130-400); RED BLOOD COUNT 4.61 x10^6/uL (4.38-5.82)
[2019-01-12] MEDS ORDERED: GABA-827 PO (19:11)
--- NOTE | 2019-01-12 19:11 | NUR ---
PT MEDICATED PER JUL. PT RESTING ON GURNEY WATCHING TV. NO S/S OF DISTRESS NOTED AT THIS TIME
[2019-01-12 19:20] LABS: ALBUMIN 3.4 g/dL (3.4-5.0); ANION GAP 4 mmol/L (5-15); CALCIUM 8.4 mg/dL (8.5-10.1); CHLORIDE 107 mmol/L (98-107); CREATININE 1.09 mg/dL (0.7-1.3)
[2019-01-12 19:56] LABS: MICROSCOPIC AUTO
[2019-01-12 19:58] LABS: CULTURE INDICATED? YES
[2019-01-12 20:33] VITALS: BP 124/60
== END 2019-01-12 20:35 | disposition home or self-care (01) ==
LOC: ED 19:22
DX: N30.00 Acute cystitis without hematuria (principal); I11.0 Hypertensive heart disease with heart failure; E11.9 Type 2 diabetes mellitus without complications; I25.2 Old myocardial infarction; J44.9 Chronic obstructive pulmonary disease, unspecified; I25.10 Atherosclerotic heart disease of native coronary artery without angina pectoris; E78.5 Hyperlipidemia, unspecified; I50.9 Heart failure, unspecified; G89.29 Other chronic pain; M19.90 Unspecified osteoarthritis, unspecified site; F17.200 Nicotine dependence, unspecified, uncomplicated; Z95.0 Presence of cardiac pacemaker; M79.10 Myalgia, unspecified site
CPT/HCPCS: 36415; 80048; 81001; 82040; 83735; 85025; 87077; 87086; 93005; 96372; 99284; J1885; 99283

== ENCOUNTER 2019-03-09 17:35 | Emergency (ER) | payer MEDICARE, MEDICAID ==
[~2019-03-09] VITALS: Ht 175.3 cm; Wt 88.7 kg
[~2019-03-09 17:35] MED LIST changes: +ACET500T64 PO; -ACET500T71 PO; +GABA-827 PO
[2019-03-09] MEDS ORDERED: ONDANSETRON 2MG/ML, 2ML ONE (19:54)
[2019-03-09] MEDS ORDERED: MORPHINE SULFATE 4 MG/ML, 1ML ONE ×2 (19:54→21:25)
[2019-03-09] MEDS ORDERED: ONDANSETRON 2MG/ML, 2ML IVPush ONE (20:00)
[2019-03-09] MEDS ORDERED: SODIUM CHLORIDE 0.9% 1,000ML IVBOLUS ONE (20:00)
[2019-03-09 20:03] LABS: BASOPHILS # (AUTO) 0.05 x10^3/uL (0-0.1); BASOPHILS % (AUTO) 1 % (0-1); EOSINOPHILS # (AUTO) 0.17 x10^3/uL (0-0.4); EOSINOPHILS % (AUTO) 2 % (1-7); LYMPHOCYTES # (AUTO) 2.69 x10^3/uL (1-3.4); LYMPHOCYTES % (AUTO) 31 % (22-44); MD NO; MEAN CORPUSCULAR HEMOGLOBIN 29.9 pg (27.5-34.5); MEAN CORPUSCULAR HGB CONC 32.8 g/dL (33.2-36.2); MEAN CORPUSCULAR VOLUME 91.2 fL (81-97); MEAN PLATELET VOLUME 7.6 fL (7.4-10.4); MONOCYTES # (AUTO) 0.82 x10^3/uL (0.2-0.8); MONOCYTES % (AUTO) 10 % (2-9); NEUTROPHILS # (AUTO) 4.88 x10^3/uL (1.8-6.8); NEUTROPHILS % (AUTO) 57 % (42-75); PLATELET COUNT 255 x10^3/uL (130-400); RED BLOOD COUNT 4.82 x10^6/uL (4.38-5.82); RED CELL DISTRIBUTION WIDTH 15.3 % (9.4-14.8)
[2019-03-09] MEDS: MORPHINE SULFATE 4 MG/ML, 1ML IVPush PRN ×2 (20:03→21:29)
[2019-03-09 20:05] LABS: MICROSCOPIC AUTO
[2019-03-09 20:06] LABS: ALANINE AMINOTRANSFERASE 33 U/L (12-78); ALBUMIN 3.5 g/dL (3.4-5.0); ANION GAP 4 mmol/L (5-15); CALCIUM 8.4 mg/dL (8.5-10.1); CHLORIDE 109 mmol/L (98-107); CREATININE 1.16 mg/dL (0.7-1.3)
[2019-03-09 20:08] LABS: ALKALINE PHOSPHATASE 129 U/L (45-117); BILIRUBIN,TOTAL 0.3 mg/dL (0.2-1.0); TOTAL PROTEIN 7.3 g/dL (6.4-8.2)
[2019-03-09 20:09] LABS: CULTURE INDICATED? YES
[2019-03-09 22:12] VITALS: BP 152/78
[2019-03-09] MEDS ORDERED: OMNIPAQUE 350 MG/ML, 100ML BOTTLE ONE (23:26)
== END 2019-03-09 22:15 | disposition home or self-care (01) ==
LOC: ED 19:17
DX: N30.01 Acute cystitis with hematuria (principal); N21.0 Calculus in bladder; J44.9 Chronic obstructive pulmonary disease, unspecified; I25.2 Old myocardial infarction; E11.9 Type 2 diabetes mellitus without complications; I11.0 Hypertensive heart disease with heart failure; I50.9 Heart failure, unspecified; Z95.0 Presence of cardiac pacemaker
CPT/HCPCS: 36415; 74177; 80053; 81001; 85025; 87086; 96374; 96375; 96376; 99284; J2270; J2405; J7030; Q9967

== ENCOUNTER 2019-12-20 16:41 | Emergency (ER) | payer MEDICAID, MEDICARE ==
[~2019-12-20] VITALS: Ht 175.3 cm; Wt 87.0 kg
[~2019-12-20 16:41] MED LIST changes: -MECL12.52 PO; +MECL12.581 PO
[2019-12-20 16:44] VITALS: BP 129/70
[2019-12-20] MEDS ORDERED: KETOROLAC 30 MG/1 ML IM ONE (17:30)
[2019-12-20] MEDS ORDERED: HYDROcodone/APAP 5/325 TABLET PO ONE (17:30)
[2019-12-20] MEDS ORDERED: KETOROLAC 30 MG/1 ML ONE (17:35)
[2019-12-20] MEDS ORDERED: HYDROcodone/APAP 5/325 TABLET ONE (17:36)
--- NOTE | 2019-12-20 17:43 | NUR ---
PT MEDICATED WITH NORCO AND TORADOL.
--- NOTE | 2019-12-20 19:13 | NUR ---
Patient/Caregiver given discharge instructions and they have confirmed that they understand the instructions. Patient ambulatory with steady gait.
== END 2019-12-20 19:24 | disposition home or self-care (01) ==
LOC: ED 19:15
DX: M54.5 Low back pain (principal); R94.31 Abnormal electrocardiogram [ECG] [EKG]; I11.0 Hypertensive heart disease with heart failure; I50.9 Heart failure, unspecified; E11.9 Type 2 diabetes mellitus without complications; I25.10 Atherosclerotic heart disease of native coronary artery without angina pectoris; J44.9 Chronic obstructive pulmonary disease, unspecified; I25.2 Old myocardial infarction; Z95.0 Presence of cardiac pacemaker
CPT/HCPCS: 93005; 96372; 99283; J1885

== ENCOUNTER 2020-01-01 21:01 | Emergency (ER) | payer MEDICARE ==
[~2020-01-01] VITALS: Ht 175.3 cm; Wt 90.3 kg
[2020-01-01 21:04] VITALS: BP 147/96
--- NOTE | 2020-01-01 21:44 | NUR ---
CJ GABRIEL AT .
[2020-01-01] MEDS ORDERED: HYDROcodone/APAP 5/325 TABLET PO ONE (21:52)
[2020-01-01] MEDS ORDERED: HYDROcodone/APAP 5/325 TABLET ONE (21:56)
--- NOTE | 2020-01-01 22:01 | NUR ---
PT MEDICATED PER ORDERS. REQUESTING ABX FOR SPIDER BITE AND CONCERNED ABOUT SWELLING TO ABDOMEN. WILL NOTIFY CJ GABRIEL.
--- NOTE | 2020-01-01 22:35 | NUR ---
D/C INSTRUCTIONS, MEDS & F/U APPT'S RV'WD WITH PT, HE VERBALIZED UNDERSTANDING. RX GIVEN X2. PT AMBULATED OUT OF ED WITHOUT DIFFICULTY.
== END 2020-01-01 22:41 | disposition home or self-care (01) ==
LOC: ED 22:00
DX: L02.01 Cutaneous abscess of face (principal); G89.29 Other chronic pain; M54.5 Low back pain; M54.6 Pain in thoracic spine; J44.9 Chronic obstructive pulmonary disease, unspecified; E11.9 Type 2 diabetes mellitus without complications; I25.2 Old myocardial infarction; I11.0 Hypertensive heart disease with heart failure; I50.9 Heart failure, unspecified; E78.5 Hyperlipidemia, unspecified; Z87.891 Personal history of nicotine dependence
CPT/HCPCS: 99283

== ENCOUNTER 2020-01-15 12:49 | Emergency (ER) | payer MEDICAID, MEDICARE ==
[~2020-01-15] VITALS: Ht 175.3 cm; Wt 88.2 kg
--- NOTE | 2020-01-15 13:20 | NUR ---
PT AMBULATED TO RESTROOM WITH STEADY GAIT TO PROVIDE URINE SAMPLE. UA ORDERED PER PROTOCOL AND SENT TO LAB.
[2020-01-15 13:23] LABS: MICROSCOPIC NOT IND
[2020-01-15] MEDS ORDERED: SODIUM CHLORIDE FLUSH 10ML SYR IVF ONE (13:30)
--- NOTE | 2020-01-15 13:40 | NUR ---
PIV PLACED, LABS DRAWN. EKG COMPLETE. PT GOING TO XRAY. BLADDER SCAN SHOWED ABOUT 260ML IN BLADDER.
--- NOTE | 2020-01-15 13:44 | NUR ---
BLADDER SCAN RESULTED 264 mL
[2020-01-15 13:59] LABS: BASOPHILS # (AUTO) 0.04 x10^3/uL (0-0.1); BASOPHILS % (AUTO) 1 % (0-1); EOSINOPHILS # (AUTO) 0.15 x10^3/uL (0-0.4); EOSINOPHILS % (AUTO) 2 % (1-7); LYMPHOCYTES # (AUTO) 1.79 x10^3/uL (1-3.4); LYMPHOCYTES % (AUTO) 23 % (22-44); MD NO; MEAN CORPUSCULAR HGB CONC 32.8 g/dL (33.2-36.2); MEAN CORPUSCULAR VOLUME 94.7 fL (81-97); MEAN PLATELET VOLUME 7.4 fL (7.4-10.4); MONOCYTES # (AUTO) 0.63 x10^3/uL (0.2-0.8); MONOCYTES % (AUTO) 8 % (2-9); NEUTROPHILS # (AUTO) 5.05 x10^3/uL (1.8-6.8); NEUTROPHILS % (AUTO) 66 % (42-75); PLATELET COUNT 278 x10^3/uL (130-400); RED BLOOD COUNT 4.76 x10^6/uL (4.38-5.82); RED CELL DISTRIBUTION WIDTH 14.4 % (9.4-14.8)
[2020-01-15 14:09] LABS: ALBUMIN 3.7 g/dL (3.4-5.0); ANION GAP 8 mmol/L (5-15); CALCIUM 9.2 mg/dL (8.5-10.1); CHLORIDE 109 mmol/L (98-107)
[2020-01-15 14:13] LABS: ALANINE AMINOTRANSFERASE 37 U/L (12-78); ALKALINE PHOSPHATASE 118 U/L (45-117); BILIRUBIN,TOTAL 0.6 mg/dL (0.2-1.0); CREATININE 0.93 mg/dL (0.7-1.3); TOTAL PROTEIN 7.6 g/dL (6.4-8.2)
--- NOTE | 2020-01-15 14:29 | NUR ---
ALL RESULTS ARE BACK AT THIS TIME. CHART UP FOR RECHECK.
[2020-01-15] MEDS ORDERED: KETOROLAC 30 MG/1 ML IVPush ONE (14:30)
[2020-01-15] MEDS ORDERED: KETOROLAC 30 MG/1 ML ONE (14:32)
--- NOTE | 2020-01-15 14:36 | NUR ---
STABLE CLEANER PER MAR.
[2020-01-15 15:01] VITALS: BP 157/79
--- NOTE | 2020-01-15 15:02 | NUR ---
TASK RN: Patient/Caregiver given discharge instructions and they have confirmed that they understand the instructions. Patient ambulatory with steady gait.
== END 2020-01-15 15:03 | disposition home or self-care (01) ==
LOC: ED 14:42
DX: N40.1 Benign prostatic hyperplasia with lower urinary tract symptoms (principal); R33.8 Other retention of urine; G89.29 Other chronic pain; R10.84 Generalized abdominal pain; M17.0 Bilateral primary osteoarthritis of knee; M54.5 Low back pain; R94.31 Abnormal electrocardiogram [ECG] [EKG]; I11.0 Hypertensive heart disease with heart failure; I50.9 Heart failure, unspecified; E11.9 Type 2 diabetes mellitus without complications; I25.10 Atherosclerotic heart disease of native coronary artery without angina pectoris; J44.9 Chronic obstructive pulmonary disease, unspecified; I25.2 Old myocardial infarction; Z95.0 Presence of cardiac pacemaker
CPT/HCPCS: 36415; 74022; 80053; 81003; 83605; 83690; 85025; 93005; 96374; 99285; J1885

== ENCOUNTER 2020-02-08 19:47 | Emergency (ER) | payer MEDICARE, MEDICAID ==
[~2020-02-08] VITALS: Ht 175.3 cm; Wt 89.0 kg
[2020-02-08] MEDS ORDERED: KETOROLAC 30 MG/1 ML ONE (20:27)
[2020-02-08] MEDS ORDERED: KETOROLAC 30 MG/1 ML IM ONE (20:30)
[2020-02-08 20:38] VITALS: BP 130/70
== END 2020-02-08 21:24 | disposition home or self-care (01) ==
LOC: ED 20:31
DX: G89.11 Acute pain due to trauma (principal); M25.512 Pain in left shoulder; Z72.9 Problem related to lifestyle, unspecified; R00.0 Tachycardia, unspecified; I11.0 Hypertensive heart disease with heart failure; I50.9 Heart failure, unspecified; I25.10 Atherosclerotic heart disease of native coronary artery without angina pectoris; M19.90 Unspecified osteoarthritis, unspecified site; E11.9 Type 2 diabetes mellitus without complications; J44.9 Chronic obstructive pulmonary disease, unspecified; I25.2 Old myocardial infarction; Z95.0 Presence of cardiac pacemaker; W01.0XXA Fall on same level from slipping, tripping and stumbling without subsequent striking against object, initial encounter; Y93.89 Activity, other specified; Y92.89 Other specified places as the place of occurrence of the external cause; Y99.8 Other external cause status
CPT/HCPCS: 73000; 96372; 99283; J1885

== ENCOUNTER 2020-02-24 08:48 | Emergency (ER) | payer MEDICARE, MEDICAID ==
[~2020-02-24] VITALS: Ht 175.3 cm; Wt 88.2 kg
[2020-02-24 08:51] VITALS: BP 165/95
[2020-02-24] MEDS ORDERED: NEOSPORIN OINT. PKT 1 PACKET ONE (09:40)
== END 2020-02-24 09:44 | disposition home or self-care (01) ==
LOC: ED 09:15
DX: T23.611A Corrosion of second degree of right thumb (nail), initial encounter (principal); T32.0 Corrosions involving less than 10% of body surface; I11.0 Hypertensive heart disease with heart failure; I50.9 Heart failure, unspecified; E11.9 Type 2 diabetes mellitus without complications; I25.10 Atherosclerotic heart disease of native coronary artery without angina pectoris; J44.9 Chronic obstructive pulmonary disease, unspecified; I25.2 Old myocardial infarction; X19.XXXA Contact with other heat and hot substances, initial encounter; Y93.89 Activity, other specified; Y92.009 Unspecified place in unspecified non-institutional (private) residence as the place of occurrence of the external cause; Y99.8 Other external cause status
CPT/HCPCS: 10060; 16020; 99282

== ENCOUNTER 2020-03-27 16:09 | Emergency (ER) | payer MEDICARE, MEDICAID ==
[~2020-03-27] VITALS: Ht 175.3 cm; Wt 84.0 kg
[~2020-03-27 16:09] MED LIST changes: +AMLO-211 PO; -AMLO10TA8 PO
[2020-03-27] MEDS ORDERED: NITROGLYCERIN SINGLE TAB 0.4 MG SL PRN (17:00)
[2020-03-27] MEDS ORDERED: ASPIRIN 81 MG TABLET CHEW PO ONE (17:00)
[2020-03-27] MEDS ORDERED: SODIUM CHLORIDE FLUSH 10ML SYR IVF ONE (17:00)
--- NOTE | 2020-03-27 17:00 | NUR ---
PT BIB POV. PT COMPLAINING OF THROAT AND UPPER CHEST PAIN, PT RESTING COMFORTABLY IN GURNEY. PT STATES HIS PAIN IS A 9/10. ERP NESBITT AT BEDSIDE.
[2020-03-27] MEDS ORDERED: ASPIRIN 81 MG TABLET CHEW ONE (17:09)
[2020-03-27] MEDS ORDERED: NITROGLYCERIN SINGLE TAB 0.4 MG SL ONE ×4 (17:09→17:18)
[2020-03-27 17:21] LABS: BASOPHILS % (AUTO) 1 % (0-1); EOSINOPHILS % (AUTO) 5 % (1-7); LYMPHOCYTES % (AUTO) 20 % (22-44); MEAN CORPUSCULAR HEMOGLOBIN 31.3 pg (27.5-34.5); MEAN CORPUSCULAR HGB CONC 33.7 g/dL (33.2-36.2); MEAN PLATELET VOLUME 7.6 fL (7.4-10.4); MONOCYTES % (AUTO) 10 % (2-9); NEUTROPHILS % (AUTO) 63 % (42-75); PLATELET COUNT 210 x10^3/uL (130-400); RED BLOOD COUNT 4.45 x10^6/uL (4.38-5.82); RED CELL DISTRIBUTION WIDTH 14.8 % (9.4-14.8)
--- NOTE | 2020-03-27 17:24 | NUR ---
THIS RN WENT TO PT ROOM TO MEDICATE WITH ASPIRIN AND NITRO. PT STATES "I HOPE YOU HAVE SOMETHING FOR MY PAIN", THIS RN INFORMED HIM THERE WAS ASPIRIN AND NITRO ORDERED. PT STATES "THAT WILL NOT HELP MY PAIN". THIS RN EDUCATED ON REASON FOR MEDICATIONS WITH CHEST PAIN. PT THEN STATES "WELL I HAVE AN ALLERGY TO ASPIRIN". THIS RN ASKED PT IF HE HAD AN ALLERGIC REACTION LAST MONTH WHEN HE WAS HOSPITALIZED HERE FOR CP, PT STATES "I DIDN'T KNOW THEY GAVE ME ASPIRIN". MD AWARE OF PT'S STATED ALLERGY.
[2020-03-27 17:33] LABS: ALBUMIN 2.8 g/dL (3.4-5.0); CALCIUM 8.4 mg/dL (8.5-10.1); CREATININE 0.94 mg/dL (0.7-1.3)
[2020-03-27 17:40] LABS: ANION GAP 3 mmol/L (5-15); CHLORIDE 108 mmol/L (98-107); TROPONIN I 0.053 ng/mL (0.000-0.045)
[2020-03-27 17:49] LABS: MD SCAN
--- NOTE | 2020-03-27 18:21 | NUR ---
PIV PLACED BY EMT STUDENT FOR CTA
[2020-03-27] MEDS ORDERED: OMNIPAQUE 350 MG/ML, 100ML BOTTLE ONE (18:30)
--- NOTE | 2020-03-27 19:37 | NUR ---
PT RESTING IN [facility], NO NEEDS AT THIS TIME.
[2020-03-27 20:21] VITALS: BP 146/75
--- NOTE | 2020-03-27 20:21 | NUR ---
Patient given discharge instructions and they have confirmed that they understand the instructions. Patient ambulatory with steady gait.
== END 2020-03-27 20:32 | disposition home or self-care (01) ==
LOC: ED 20:25
DX: U07.1 COVID-19 (principal); J12.89 Other viral pneumonia; R11.0 Nausea; R06.02 Shortness of breath; I11.0 Hypertensive heart disease with heart failure; I50.9 Heart failure, unspecified; E11.9 Type 2 diabetes mellitus without complications; E78.5 Hyperlipidemia, unspecified; I25.2 Old myocardial infarction; J44.9 Chronic obstructive pulmonary disease, unspecified; F17.210 Nicotine dependence, cigarettes, uncomplicated; I25.10 Atherosclerotic heart disease of native coronary artery without angina pectoris; M19.90 Unspecified osteoarthritis, unspecified site; Z95.0 Presence of cardiac pacemaker
CPT/HCPCS: 36415; 71045; 71275; 80048; 82040; 83880; 84484; 85025; 85379; 93005; 99285; Q9967

== ENCOUNTER 2020-04-23 17:34 | Emergency (ER) | payer MEDICARE, MEDICAID ==
[~2020-04-23] VITALS: Ht 175.3 cm; Wt 85.0 kg
[~2020-04-23 17:34] MED LIST changes: -MECL12.581 PO; +MECL12.582 PO
--- NOTE | 2020-04-23 18:23 | NUR ---
PT COME TO ER FOR CO SOB AND CP. PT STATES DIAGNOSED W PNEUMONIA 3 WEEKS AGO, COMPLETED ABX, RIB PAIN, CHEST PAIN BREATHING. PT NOT IN RESP DISTRESS. DENIES N/V. DICE TABLE OPERATOR IN PLACE. MD CAMPBELL AT BEDSIDE
[2020-04-23 18:26] LABS: BASOPHILS % (AUTO) 1 % (0-1); EOSINOPHILS % (AUTO) 3 % (1-7); LYMPHOCYTES % (AUTO) 37 % (22-44); MEAN CORPUSCULAR HEMOGLOBIN 31.1 pg (27.5-34.5); MEAN PLATELET VOLUME 7.5 fL (7.4-10.4); MONOCYTES % (AUTO) 9 % (2-9); NEUTROPHILS % (AUTO) 50 % (42-75); PLATELET COUNT 325 x10^3/uL (130-400); RED BLOOD COUNT 4.67 x10^6/uL (4.38-5.82); RED CELL DISTRIBUTION WIDTH 15.5 % (9.4-14.8)
[2020-04-23 18:30] LABS: ALANINE AMINOTRANSFERASE 71 U/L (12-78); ALBUMIN 3.5 g/dL (3.4-5.0); ANION GAP 5 mmol/L (5-15); CHLORIDE 109 mmol/L (98-107); CREATININE 0.91 mg/dL (0.7-1.3); MD NO
[2020-04-23] MEDS ORDERED: HYDROcodone/APAP 5/325 TABLET PO ONE (18:30)
[2020-04-23 18:35] LABS: ALKALINE PHOSPHATASE 129 U/L (45-117); BILIRUBIN,TOTAL 0.3 mg/dL (0.2-1.0); TOTAL PROTEIN 8.3 g/dL (6.4-8.2); TROPONIN I 0.058 ng/mL (0.000-0.045)
--- NOTE | 2020-04-23 18:53 | NUR ---
BEDSIDE REPORT RECEIVED FROM BENJAMIN LOAIZA
[2020-04-23] MEDS ORDERED: HYDROcodone/APAP 5/325 TABLET ONE (19:02)
--- NOTE | 2020-04-23 19:12 | NUR ---
PT GABBIING LIZ PEREZ, VSS. PT MEDICATED PER EMAR. NO ADDITIONAL NEEDS AT THIS TIME.
[2020-04-23 19:30] VITALS: BP 136/88
[2020-04-23] MEDS ORDERED: PLEASE ENTER HEIGHT AND WEIGHT MC SCH (19:30)
--- NOTE | 2020-04-23 19:33 | NUR ---
Patient given discharge instructions and they have confirmed that they understand the instructions. Patient ambulatory with steady gait.
== END 2020-04-23 19:39 | disposition home or self-care (01) ==
LOC: ED 18:16
DX: M94.0 Chondrocostal junction syndrome [Tietze] (principal); J12.9 Viral pneumonia, unspecified; I10 Essential (primary) hypertension; E78.5 Hyperlipidemia, unspecified; E11.9 Type 2 diabetes mellitus without complications; I25.10 Atherosclerotic heart disease of native coronary artery without angina pectoris; J44.9 Chronic obstructive pulmonary disease, unspecified; I25.2 Old myocardial infarction
CPT/HCPCS: 36415; 71045; 80053; 83690; 84484; 85025; 93005; 99285; J7512

== ENCOUNTER 2020-04-29 08:10 | Emergency (ER) | payer MEDICARE, MEDICAID ==
[~2020-04-29] VITALS: Ht 175.3 cm; Wt 83.6 kg
--- NOTE | 2020-04-29 08:29 | NUR ---
PT AMBULATES TO BATHROOM WITHOUT COMPLICATION.
[2020-04-29] MEDS ORDERED: OXYcodone/APAP 5/325MG TABLET PO ONE (08:30)
[2020-04-29] MEDS ORDERED: OXYcodone/APAP 5/325MG TABLET ONE (08:36)
[2020-04-29 08:51] LABS: MICROSCOPIC AUTO
[2020-04-29 09:11] LABS: BASOPHILS % (AUTO) 1 % (0-1); EOSINOPHILS % (AUTO) 2 % (1-7); LYMPHOCYTES % (AUTO) 15 % (22-44); MD NO; MEAN PLATELET VOLUME 7.1 fL (7.4-10.4); MONOCYTES % (AUTO) 3 % (2-9); NEUTROPHILS % (AUTO) 80 % (42-75); PLATELET COUNT 317 x10^3/uL (130-400); RED BLOOD COUNT 4.71 x10^6/uL (4.38-5.82); RED CELL DISTRIBUTION WIDTH 15.4 % (9.4-14.8)
--- NOTE | 2020-04-29 09:14 | NUR ---
pt returns from imaging
[2020-04-29 09:20] LABS: ALBUMIN 3.4 g/dL (3.4-5.0); CREATININE 1.03 mg/dL (0.7-1.3)
--- NOTE | 2020-04-29 09:33 | NUR ---
pt resting in bed watching tv. appers in no acute distress. vss
[2020-04-29 09:36] LABS: ANION GAP 7 mmol/L (5-15); CHLORIDE 111 mmol/L (98-107)
[2020-04-29 10:25] VITALS: BP 142/71
== END 2020-04-29 10:27 | disposition home or self-care (01) ==
LOC: ED 08:21
DX: G89.29 Other chronic pain (principal); M54.5 Low back pain; R10.32 Left lower quadrant pain; R93.41 Abnormal radiologic findings on diagnostic imaging of renal pelvis, ureter, or bladder; Z76.0 Encounter for issue of repeat prescription
CPT/HCPCS: 36415; 74176; 80048; 81001; 82040; 85025; 99284

== ENCOUNTER 2020-05-06 22:07 | Emergency (ER) | payer MEDICARE, MEDICAID ==
[~2020-05-06] VITALS: Ht 175.3 cm; Wt 86.0 kg
[2020-05-06] MEDS ORDERED: ATOR10TA9 PO (22:28)
--- NOTE | 2020-05-06 22:31 | NUR ---
TASK RN: PT CHANGED INTO GOWN ADN SITUATION ON ROSSANA, REPORTS SOB AND CP RECENTLY, HOSPITALIZED 2 MONTHS OR SO PRIOR FOR COVID/PNA. STATES SINCE THEN HES BEEN HAVING THE CP AND SOB. PT DENIES SIGNIFICANT COUGHING, O2 SATS 97% RA, STATES HE CAME IN TODAY BECAUSE "ITS JUST GOTTEN SO BAD AND WONT GO AWAY". PULSES 2+, NO EDEMA. USES CANE BASELINE FOR WALKING, GROSS NEURO INTACT PT PLACED ON SPO2/BP/ECG MONITORING AT THIS TIME. WCTM.
[2020-05-06] MEDS ORDERED: KETOROLAC 30 MG/1 ML IM ONE (23:00)
[2020-05-06] MEDS ORDERED: KETOROLAC 30 MG/1 ML ONE (23:03)
[2020-05-06 23:15] VITALS: BP 148/68
--- NOTE | 2020-05-06 23:19 | NUR ---
pt awake and alert, no distress at this time. on cr monitor. pain meds given via iv to right forearm. flushed easy, no swelling or redness noted. pt tolerated well. call light within reach
[2020-05-06 23:20] LABS: BASOPHILS % (AUTO) 1 % (0-1); EOSINOPHILS % (AUTO) 4 % (1-7); LYMPHOCYTES % (AUTO) 31 % (22-44); MD NO; MEAN CORPUSCULAR HEMOGLOBIN 31.1 pg (27.5-34.5); MEAN CORPUSCULAR HGB CONC 33.7 g/dL (33.2-36.2); MEAN PLATELET VOLUME 7.4 fL (7.4-10.4); MONOCYTES % (AUTO) 8 % (2-9); NEUTROPHILS % (AUTO) 56 % (42-75); PLATELET COUNT 284 x10^3/uL (130-400); RED BLOOD COUNT 4.48 x10^6/uL (4.38-5.82); RED CELL DISTRIBUTION WIDTH 15.7 % (9.4-14.8)
[2020-05-06 23:30] LABS: ALBUMIN 3.4 g/dL (3.4-5.0); ANION GAP 7 mmol/L (5-15); CALCIUM 8.7 mg/dL (8.5-10.1); CHLORIDE 110 mmol/L (98-107); CREATININE 1.04 mg/dL (0.7-1.3)
[2020-05-06 23:33] LABS: TROPONIN I 0.064 ng/mL (0.000-0.045)
--- NOTE | 2020-05-07 00:27 | NUR ---
pt given follow up and d/c instructions and v/u. ambulatory and d/c'd without incident.
[2020-05-07] MEDS ORDERED: DEXAMETHASONE 4 MG TABLET PO ONE (00:30)
== END 2020-05-07 00:30 | disposition home or self-care (01) ==
LOC: ED 23:01
DX: R77.8 Other specified abnormalities of plasma proteins (principal); R07.89 Other chest pain; E11.9 Type 2 diabetes mellitus without complications; J44.9 Chronic obstructive pulmonary disease, unspecified; I25.2 Old myocardial infarction; I11.0 Hypertensive heart disease with heart failure; I50.9 Heart failure, unspecified; E78.5 Hyperlipidemia, unspecified; M19.90 Unspecified osteoarthritis, unspecified site; Z95.0 Presence of cardiac pacemaker; Z87.891 Personal history of nicotine dependence
CPT/HCPCS: 36415; 71045; 80048; 82040; 84484; 85025; 93005; 99285

== ENCOUNTER 2020-06-19 11:00 | Emergency (ER) | payer MEDICARE, MEDICAID ==
[~2020-06-19] VITALS: Ht 175.3 cm; Wt 87.0 kg
[~2020-06-19 11:00] MED LIST changes: -ASPI-650 PO; +ASPI325T20 PO; +ATOR10TA9 PO; -CYCL-259 PO; +CYCL10TA2 PO; -OXYC-307; +OXYC-380
[2020-06-19 11:07] VITALS: BP 151/82
[2020-06-19] MEDS ORDERED: KETOROLAC 30 MG/1 ML IM ONE (11:30)
[2020-06-19] MEDS ORDERED: KETOROLAC 30 MG/1 ML ONE (11:31)
--- NOTE | 2020-06-19 11:46 | NUR ---
PT BACK FROM XRAY. CARRIER WASHER PER JUL.
--- NOTE | 2020-06-19 12:01 | NUR ---
ALL RESULTS ARE BACK AT THIS TIME. CHART UP FOR RECHECK.
--- NOTE | 2020-06-19 12:09 | NUR ---
MD AT BEDSIDE TO UPDATE PT ON POC
== END 2020-06-19 13:01 | disposition home or self-care (01) ==
LOC: ED 12:07
DX: S39.012A Strain of muscle, fascia and tendon of lower back, initial encounter (principal); I50.9 Heart failure, unspecified; I11.0 Hypertensive heart disease with heart failure; J44.9 Chronic obstructive pulmonary disease, unspecified; I25.2 Old myocardial infarction; E11.9 Type 2 diabetes mellitus without complications; I25.10 Atherosclerotic heart disease of native coronary artery without angina pectoris; E78.5 Hyperlipidemia, unspecified; E87.6 Hypokalemia; Z95.0 Presence of cardiac pacemaker; X58.XXXA Exposure to other specified factors, initial encounter; Y93.89 Activity, other specified; Y92.89 Other specified places as the place of occurrence of the external cause; Y99.8 Other external cause status
CPT/HCPCS: 72072; 72110; 96372; 99284; J1885

== ENCOUNTER 2020-07-14 13:16 | Emergency (ER) | payer MEDICARE, MEDICAID ==
[~2020-07-14] VITALS: Ht 175.3 cm; Wt 87.8 kg
[~2020-07-14 13:16] MED LIST changes: -MECL12.582 PO; +MECL12.590 PO
--- NOTE | 2020-07-14 13:52 | NUR ---
BREAK RN: THIS IS A 69 YO M W/ C/O BLADDER PAIN, PT REPORTS WAS SEENX3 WEEKS AGO FOR SAME AND WAS NOT GIVEN ABX, ONLY MEDS FOR BLADDER SPASM. PT REPORTS NO RELIEF W/ MEDS. PT RESTING ON GURNEY W/ CALL LIGHT IN REACH AND SIDE RAILS UPX2. RESP EVEN AND UNLABORED, PABLO. AWAITING ED EVAL.
--- NOTE | 2020-07-14 13:57 | NUR ---
UA ORDERED BY THIS RN PER PROTOCOL. COLLECTED AND SENT TO LAB. MED STUDENT AT BEDSIDE FOR EVAL.
--- NOTE | 2020-07-14 13:58 | NUR ---
PT REPORTS BLADDER PAIN "FOR YEARS, FEELS LIKE IT'S GOING TO FALL OUT". PT STATES THAT PAIN RADIATES INTO LEFT FLANK.
[2020-07-14 14:15] LABS: MICROSCOPIC AUTO
--- NOTE | 2020-07-14 14:19 | NUR ---
BLADDER SCAN FOR PVR = 290ML
--- NOTE | 2020-07-14 14:40 | NUR ---
PT REFUSED SIERRA & STRAIGHT CATHS, DESPITE PT EDUCATION. PT STATES "I WANT A PILL TO MAKE ME PEE, I DONT WANT ANYTHING IN ME." ERP AWARE.
--- NOTE | 2020-07-14 14:45 | NUR ---
ERP AT BS REINFORCING PT EDUCATION ON SIERRA USE. PT AGREEABLE TO SIERRA INSERTION AT THIS TIME.
[2020-07-14 14:47] LABS: BASOPHILS % (AUTO) 1 % (0-1); EOSINOPHILS % (AUTO) 4 % (1-7); LYMPHOCYTES % (AUTO) 36 % (22-44); MD NO; MEAN CORPUSCULAR HEMOGLOBIN 30.7 pg (27.5-34.5); MEAN CORPUSCULAR HGB CONC 33.4 g/dL (33.2-36.2); MEAN PLATELET VOLUME 7.4 fL (7.4-10.4); MONOCYTES % (AUTO) 11 % (2-9); NEUTROPHILS % (AUTO) 49 % (42-75); PLATELET COUNT 265 x10^3/uL (130-400); RED BLOOD COUNT 4.79 x10^6/uL (4.38-5.82); RED CELL DISTRIBUTION WIDTH 13.6 % (9.4-14.8)
[2020-07-14] MEDS ORDERED: OXYcodone/APAP 5/325MG TABLET ONE (14:53)
[2020-07-14] MEDS ORDERED: LIDOCAINE 2%,20 ML JEL.PF.APP MM ONE ×2 (14:54→15:00)
[2020-07-14 14:55] VITALS: BP 191/101
[2020-07-14 14:58] LABS: ALANINE AMINOTRANSFERASE 44 U/L (12-78); ALBUMIN 3.5 g/dL (3.4-5.0); ANION GAP 5 mmol/L (5-15); CALCIUM 8.7 mg/dL (8.5-10.1); CHLORIDE 108 mmol/L (98-107); CREATININE 0.89 mg/dL (0.7-1.3)
[2020-07-14 15:00] LABS: ALKALINE PHOSPHATASE 104 U/L (45-117); BILIRUBIN,TOTAL 0.4 mg/dL (0.2-1.0); TOTAL PROTEIN 7.4 g/dL (6.4-8.2)
[2020-07-14] MEDS ORDERED: OXYcodone/APAP 5/325MG TABLET PO ONE (15:00)
--- NOTE | 2020-07-14 15:40 | NUR ---
VOIDED 175ML. PVR 303ML. PT REFUSING SIERRA AGAIN. ERP AWARE.
--- NOTE | 2020-07-14 16:22 | NUR ---
Patient given discharge instructions and they have confirmed that they understand the instructions. Patient ambulatory with steady gait.
== END 2020-07-14 16:25 | disposition home or self-care (01) ==
LOC: ED 16:15
DX: R33.9 Retention of urine, unspecified (principal); R10.30 Lower abdominal pain, unspecified; E78.5 Hyperlipidemia, unspecified; I25.10 Atherosclerotic heart disease of native coronary artery without angina pectoris; I25.2 Old myocardial infarction; I11.0 Hypertensive heart disease with heart failure; I50.9 Heart failure, unspecified; J44.9 Chronic obstructive pulmonary disease, unspecified; Z90.89 Acquired absence of other organs; Z95.0 Presence of cardiac pacemaker; F17.210 Nicotine dependence, cigarettes, uncomplicated
CPT/HCPCS: 36415; 51702; 80053; 81001; 83605; 85025; 99284

== ENCOUNTER 2020-07-18 14:32 | Emergency (ER) | payer MEDICARE, MEDICAID ==
[~2020-07-18] VITALS: Ht 175.3 cm; Wt 80.0 kg
[2020-07-18 14:39] VITALS: BP 177/81
--- NOTE | 2020-07-18 14:51 | NUR ---
pt bib ems from home for c/o constipation with recatl bleeding x 2 hours. pt states pain in rectum, moreno red blood with bm's, states unable to go x 3 days, current narcotic use for chronic back pain. rebecca table in triage, MD at bedside for eval, guiac and anoscope with visible hemorrhoids. tolerates well. education provided for home care and treatment/prevention, verbalizes understanding.
--- NOTE | 2020-07-18 15:02 | NUR ---
report from jg rn, pt pending dc orders.
== END 2020-07-18 15:36 | disposition home or self-care (01) ==
LOC: ED 14:51
DX: K64.8 Other hemorrhoids (principal); K59.00 Constipation, unspecified; E11.9 Type 2 diabetes mellitus without complications; I11.0 Hypertensive heart disease with heart failure; I50.9 Heart failure, unspecified; M19.90 Unspecified osteoarthritis, unspecified site; J44.9 Chronic obstructive pulmonary disease, unspecified; I25.2 Old myocardial infarction; I25.10 Atherosclerotic heart disease of native coronary artery without angina pectoris; F17.290 Nicotine dependence, other tobacco product, uncomplicated; G89.29 Other chronic pain; Z90.89 Acquired absence of other organs; Z95.0 Presence of cardiac pacemaker
CPT/HCPCS: 99283

== ENCOUNTER 2020-08-11 16:42 | Emergency (ER) | payer MEDICARE, MEDICAID ==
[~2020-08-11] VITALS: Ht 175.3 cm; Wt 84.1 kg
[2020-08-11 16:53] VITALS: BP 158/80
[2020-08-11] MEDS ORDERED: BISACODYL 5 MG EC TABLET ONE (17:54)
[2020-08-11] MEDS ORDERED: MAGNESIUM CITRATE 300ML ORAL SOL ONE (17:55)
[2020-08-11] MEDS ORDERED: MAGNESIUM CITRATE 300ML ORAL SOL PO ONE (18:00)
[2020-08-11] MEDS ORDERED: BISACODYL 5 MG EC TABLET PO ONE (18:00)
== END 2020-08-11 18:07 | disposition home or self-care (01) ==
LOC: ED 17:30
DX: K59.00 Constipation, unspecified (principal); M79.10 Myalgia, unspecified site; R94.31 Abnormal electrocardiogram [ECG] [EKG]; F17.200 Nicotine dependence, unspecified, uncomplicated; I11.0 Hypertensive heart disease with heart failure; I50.9 Heart failure, unspecified; I25.10 Atherosclerotic heart disease of native coronary artery without angina pectoris; I25.2 Old myocardial infarction; Z90.89 Acquired absence of other organs; Z95.0 Presence of cardiac pacemaker
CPT/HCPCS: 74018; 93005; 99283

== ENCOUNTER 2020-10-26 13:09 | Emergency (ER) | payer MEDICARE, MEDICAID ==
[~2020-10-26] VITALS: Ht 175.3 cm; Wt 85.3 kg
[2020-10-26 13:48] VITALS: BP 171/101
[2020-10-26 14:14] LABS: BASOPHILS % (AUTO) 1 % (0-1); EOSINOPHILS % (AUTO) 2 % (1-7); LYMPHOCYTES % (AUTO) 29 % (22-44); MEAN CORPUSCULAR HEMOGLOBIN 31.4 pg (27.5-34.5); MEAN CORPUSCULAR HGB CONC 33.9 g/dL (33.2-36.2); MEAN PLATELET VOLUME 7.2 fL (7.4-10.4); MONOCYTES % (AUTO) 8 % (2-9); NEUTROPHILS % (AUTO) 60 % (42-75); PLATELET COUNT 328 x10^3/uL (130-400); RED BLOOD COUNT 4.92 x10^6/uL (4.38-5.82); RED CELL DISTRIBUTION WIDTH 15.8 % (9.4-14.8)
[2020-10-26 14:25] LABS: ALANINE AMINOTRANSFERASE 62 U/L (12-78); ALBUMIN 3.4 g/dL (3.4-5.0); ANION GAP 7 mmol/L (5-15); CALCIUM 9.5 mg/dL (8.5-10.1); CHLORIDE 111 mmol/L (98-107); CREATININE 1.11 mg/dL (0.7-1.3)
[2020-10-26 14:27] LABS: ALKALINE PHOSPHATASE 103 U/L (45-117); BILIRUBIN,TOTAL 0.4 mg/dL (0.2-1.0); TOTAL PROTEIN 7.6 g/dL (6.4-8.2)
--- NOTE | 2020-10-26 16:15 | NUR ---
Charlie nieto in [facility] - 10/26/20 at 1616 by MATTY teacher lip reading: [facility]
--- NOTE | 2020-10-26 16:16 | NUR ---
social service liaison: attempted to move pt to room from lobby, no answer in lobby
== END 2020-10-26 18:33 | disposition left against medical advice (07) ==
LOC: ED 14:32
DX: M62.838 Other muscle spasm (principal); Z79.899 Other long term (current) drug therapy
CPT/HCPCS: 36415; 80053; 83735; 85025; 99283

== ENCOUNTER 2020-11-15 09:10 | Emergency (ER) | payer MEDICARE, MEDICAID ==
[~2020-11-15] VITALS: Ht 175.3 cm; Wt 85.0 kg
--- NOTE | 2020-11-15 09:27 | NUR ---
pt presents to ed with c/o arm "bleeding out of nowhere". approx. 3 cm cut noted to L forearm, pt denies any trauma, bleeding controlled. pt a&o, resps even and unlabored, vss, nadn.
[2020-11-15 10:51] LABS: BASOPHILS % (AUTO) 1 % (0-1); EOSINOPHILS % (AUTO) 3 % (1-7); LYMPHOCYTES % (AUTO) 26 % (22-44); MEAN CORPUSCULAR HEMOGLOBIN 31.7 pg (27.5-34.5); MEAN CORPUSCULAR HGB CONC 34.1 g/dL (33.2-36.2); MEAN PLATELET VOLUME 7.8 fL (7.4-10.4); MONOCYTES % (AUTO) 9 % (2-9); NEUTROPHILS % (AUTO) 62 % (42-75); PLATELET COUNT 221 x10^3/uL (130-400); RED BLOOD COUNT 4.78 x10^6/uL (4.38-5.82); RED CELL DISTRIBUTION WIDTH 14.9 % (9.4-14.8)
[2020-11-15 11:02] LABS: INTERNATIONAL NORMALIZED RATIO 0.97 (0.93-1.1); PROTHROMBIN TIME 10.4 Seconds (9.6-11.5)
--- NOTE | 2020-11-15 11:02 | NUR ---
pt sleeping in bed, vss, nadn. awaiting lab results and dispo.
[2020-11-15 11:04] LABS: ALBUMIN 3.3 g/dL (3.4-5.0); CALCIUM 8.9 mg/dL (8.5-10.1)
[2020-11-15 11:07] LABS: ALANINE AMINOTRANSFERASE 57 U/L (12-78); ALKALINE PHOSPHATASE 103 U/L (45-117); BILIRUBIN,TOTAL 0.4 mg/dL (0.2-1.0); CREATININE 0.95 mg/dL (0.7-1.3); TOTAL PROTEIN 6.8 g/dL (6.4-8.2)
[2020-11-15 11:16] LABS: ANION GAP 5 mmol/L (5-15); CHLORIDE 107 mmol/L (98-107)
--- NOTE | 2020-11-15 11:39 | NUR ---
ALEX valencia at bedside for eval
[2020-11-15 12:02] VITALS: BP 143/84
--- NOTE | 2020-11-15 12:02 | NUR ---
pt sleeping in bed, awaiting lab result recheck and dispo.
--- NOTE | 2020-11-15 12:29 | NUR ---
poc discussed with ERP.
== END 2020-11-15 12:51 | disposition home or self-care (01) ==
LOC: ED 12:27
DX: D69.2 Other nonthrombocytopenic purpura (principal); I11.0 Hypertensive heart disease with heart failure; I50.9 Heart failure, unspecified; J44.9 Chronic obstructive pulmonary disease, unspecified; I25.10 Atherosclerotic heart disease of native coronary artery without angina pectoris; I25.2 Old myocardial infarction; E11.40 Type 2 diabetes mellitus with diabetic neuropathy, unspecified; E78.5 Hyperlipidemia, unspecified; M19.90 Unspecified osteoarthritis, unspecified site
CPT/HCPCS: 36415; 80053; 85025; 85610; 99285

== ENCOUNTER 2020-11-30 08:45 | Emergency (ER) | payer MEDICAID, MEDICARE ==
[~2020-11-30] VITALS: Ht 175.3 cm; Wt 83.0 kg
[2020-11-30] MEDS ORDERED: GABAPENTIN 300 MG CAPSULE ONE (09:06)
[2020-11-30] MEDS ORDERED: LISINOPRIL 10 MG TABLET ONE ×2 (09:06→09:16)
[2020-11-30] MEDS ORDERED: ACETAMINOPHEN 500 MG TABLET ONE (09:16)
--- NOTE | 2020-11-30 09:22 | NUR ---
Patient/Caregiver given discharge instructions and they have confirmed that they understand the instructions. Patient ambulatory with steady gait.
[2020-11-30 09:23] VITALS: BP 158/72
[2020-11-30] MEDS ORDERED: GABAPENTIN 300 MG CAPSULE PO ONE (09:30)
[2020-11-30] MEDS ORDERED: LISINOPRIL 10 MG TABLET PO ONE (09:30)
[2020-11-30] MEDS ORDERED: ACETAMINOPHEN 500 MG TABLET PO ONE (09:30)
== END 2020-11-30 09:25 | disposition home or self-care (01) ==
LOC: ED 09:01
DX: I11.0 Hypertensive heart disease with heart failure (principal); I50.9 Heart failure, unspecified; Z76.0 Encounter for issue of repeat prescription; E11.9 Type 2 diabetes mellitus without complications; J44.9 Chronic obstructive pulmonary disease, unspecified; I25.2 Old myocardial infarction; I25.10 Atherosclerotic heart disease of native coronary artery without angina pectoris; E78.5 Hyperlipidemia, unspecified; Z90.89 Acquired absence of other organs; Z95.0 Presence of cardiac pacemaker
CPT/HCPCS: 99284